=== PATIENT | female | born 1965 | race Caucasian/White ===

== ENCOUNTER 2016-10-06 08:02 | Observation (INO) | payer BC ==
[2016-09-27 12:14] LABS: BASO % 0.3 %; BASO ABS # 0.05 K/uL (0-0.2); COMPLETE YES; EOS % 2.7 %; HEMATOCRIT 43.4 % (37-47); IG% 0.4 %; LYMPH % 11.5 %; LYMPH ABS # 1.74 K/uL (1.2-3.4); MEAN CELL VOLUME 82.2 fL (80-100); MEAN CORPUSCULAR HEMOGLOBIN 28.2 pg (25-34); MEAN CORPUSCULAR HGB CONC 34.3 g/dl (32-36); MONO % 9.7 %; NEUT % 75.4 %; PLATELET COUNT 259 K/uL (130-400); RED BLOOD COUNT 5.28 M/uL (4.2-5.4); WHITE BLOOD COUNT 15.19 K/uL (4.8-10.8)
[2016-09-27 12:45] LABS: BLOOD UREA NITROGEN 11 mg/dl (7-18); BUN/CREATININE RATIO 9.6 (10-20); CALCIUM 9.3 mg/dl (8.5-10.1); CARBON DIOXIDE 23 mmol/L (21-32); CHLORIDE 107 mmol/L (98-107); GLUCOSE 72 mg/dl (70-99); POTASSIUM 3.9 mmol/L (3.5-5.1); SODIUM 141 mmol/L (136-145)
[2016-09-29 15:48] VITALS: BMI 37.0
[2016-10-06] VITALS (7 sets, daily range): BP systolic 120–146; BP diastolic 79–88; PULSE 85–101; TEMP 36.3–36.7; O2SAT 94–99; Ht 160 cm; Wt 95.0 kg
[~2016-10-06] VITALS: Ht 160 cm; Wt 95.0 kg
[~2016-10-06 08:02] MED LIST: ATV/1 PO; BUPRTAB51 PO; CEFAZOLIN 2000 MG/60 ML D5W 50 ML IV SCH; CHOL1TAB46 PO; CLB/200 PO; FLUO40CA8 PO; IBUP-103 PO; LACTATED RINGER'S 1000ML 1,000 ML IV SCH; LEFL20TA PO; LORA10TA57 PO; LOSA50TA6 PO; SIMV20TA5 PO; ZNTT/150 PO
[2016-10-06] MEDS ORDERED: FENTANYL CITRATE INJ 50 MCG/1 ML 2 ML VIAL ONE ×2 (09:30→11:56)
[2016-10-06] MEDS ORDERED: MIDAZOLAM HCL 1 MG/ML 2ML VIAL ONE (09:30)
[2016-10-06] MEDS ORDERED: DEXAMETHASONE SOD INJ 4 MG/ML VIAL ONE (09:30)
[2016-10-06] MEDS ORDERED: CISATRACURIUM BESYLATE IV SOLN 2 MG/ML 10 ML VIAL ONE (09:30)
[2016-10-06] MEDS ORDERED: PROPOFOL IV EMULSION 10 MG/ML 20 ML VIAL IV ONE (09:30)
[2016-10-06] MEDS ORDERED: ONDANSETRON INJ 2 MG/ML 2 ML VIAL ONE (09:30)
[2016-10-06] MEDS ORDERED: LIDOCAINE HCL 2% 2 ML VIAL (20MG/ML) ONE (09:30)
--- NOTE | 2016-10-06 10:23 | History & Physical Bridge Note ---
H&P Re-Evaluation Bridge Note: I have examined the patient, reviewed the History & Physical and in the interval since the performance of the History & Physical I have noted the following changes of clinical significance: No changes noted
[2016-10-06] MEDS ORDERED: HYDROmorphone INJ 2 MG/ML SYR/VIAL ONE (11:00)
[2016-10-06] MEDS ORDERED: LABETALOL HCL IV 5 MG/ML 20ML ONE (11:37)
[2016-10-06] MEDS ORDERED: TISSEEL FIBRIN SEALANT 4ML TOP ONE (12:16)
[2016-10-06] MEDS ORDERED: BUPIVACAINE 0.5 % 5 MG/1 ML MPF 30ML VIAL INJ ONE (12:32)
[2016-10-06] MEDS ORDERED: LACTATED RINGER'S 1000ML 1,000 ML IV SCH (12:43)
[2016-10-06] MEDS ORDERED: MAGNESIUM HYDROXIDE SUSP 30 ML UDC PO PRN (12:45)
[2016-10-06] MEDS ORDERED: SIMETHICONE 80 MG CHEW PO PRN (12:45)
[2016-10-06] MEDS ORDERED: OXYCODONE/ACETAMINOPHEN 5-325 TAB PO PRN ×2 (12:45)
[2016-10-06] MEDS ORDERED: ACETAMINOPHEN 325 MG TAB PO PRN (12:45)
[2016-10-06] MEDS ORDERED: PROMETHAZINE HCL INJ 25 MG in SODIUM CHLORIDE 0.9% 50ML 50 ML IV PRN (12:45)
[2016-10-06] MEDS ORDERED: KETOROLAC TROMETHAMINE 30 MG/ML VIAL IV. PRN (12:45)
[2016-10-06] MEDS ORDERED: PROMETHAZINE HCL INJ 12.5 MG in SODIUM CHLORIDE 0.9% 50ML 50 ML IV PRN ×2 (12:45→13:45)
[2016-10-06] MEDS ORDERED: IBUPROFEN 600 MG TAB PO PRN (12:45)
[2016-10-06] MEDS ORDERED: MEPERIDINE HCL 50 MG/ML CARP IV PRN ×2 (12:45)
[2016-10-06] MEDS ORDERED: ZOLPIDEM TARTRATE 5 MG TAB PO PRN (12:45)
[2016-10-06] MEDS ORDERED: ONDANSETRON INJ 2 MG/ML 2 ML VIAL IV PRN ×2 (12:45→13:45)
[2016-10-06] MEDS ORDERED: BISACODYL 10 MG SUPP PR PRN (12:45)
--- NOTE | 2016-10-06 12:45 | [facility] Post Operative Brief Note ---
Immediate Operative Summary Operative Date Oct 06, 2016. Pre-Operative Diagnosis Menorrhagia, dysmenorrhea, failed ablation Post-Operative Diagnosis Same as preoperative diagnosis Procedure(s) Performed Robotic-assisted total laparoscopic hysterectomy, bilateral salpingo-oopherectomy, cystoscopy Surgeon Dr. Tiwari Placement Coordinator Surgeon(s) None Estimated Blood Loss 20 cc Findings normal pelvic anatomy Specimens A: uterus, cervix, bilateral fallopian tubes and ovaries Drains Saldivar Anesthesia General Complication(s) None Disposition Recovery Room / PACU
[2016-10-06] MEDS ORDERED: OXYC-57 PO (12:46)
[2016-10-06] MEDS ORDERED: MTR600X PO (12:46)
--- NOTE | 2016-10-06 12:47 | Discharge Instructions ---
Discharge Instructions Admission Reason for Admission: Menorrhagia, Dysmenorrhea Discharge Discharge Diagnosis / Problem: menorrhagia Discharge Goals Goal(s): Routine recovery after surgery Activity Recommendations Activity Limitations: per Instructions/Follow-up section . Instructions / Follow-Up Instructions / Follow-Up POST OPERATIVE: BOWEL FUNCTION/MEDICATIONS: 1. Constipation pain and discomfort are the most common complaints 5-7 days after surgery. Points 2-6 address the things that can help. 2. Chewing gum can help stimulate the gut and help improve digestion and motility. 3. Milk of Magnesia 1-2 times per day until return of bowel function. 4. Colace is a stool softener that helps. Taking this 2-3 times per day until bowel function returns to normal is highly recommended. 5. Dulcolax is a laxative that may be used if several days have passed without a bowel movement. Alternatively Miralax may be used daily instead. 6. Drink plenty of fluids as this will also reduce constipation. 7. Narcotic pain medications will be prescribed by your physician. They are safe to use and we encourage you to use them. If you are not allergic, ibuprofen will also be prescribed. Many patients will be able to transition off of the narcotic medications to ibuprofen by postoperative day 3. ACTIVITY RECOMMENDATIONS: 1. Get plenty of rest and listen to your body. If you are tired, take a nap. 2. You may shower, but do not take a tub bath until you see your doctor at the 2 week post operative visit. 3. Absolutely NO intercourse and nothing in the vagina until you are examined by your doctor at the 6 week visit. At that visit it will be determined when such activities can be resumed. This can range from 6-12 weeks after your surgery depending on healing time. 4. The main physical activity in the first week should be walking. By the second week you can slowly increase activity. There are no limits on walking up and down stairs. 5. Do not lift more than 5-10 lbs for 4 weeks. Remember the "one-handed rule", i.e. if you can lift something with only one hand it's likely okay. 6. Minimize bung remover like vacuuming and exercising for 4 weeks. "Overdoing it" can lead to incisions not healing, pain and vaginal bleeding , so again, listen to your body. 7. Driving can be resumed when you feel able. Do not drive within 24 hours of taking a narcotic medication. EXPECTATIONS: 1. Vaginal spotting, bleeding and discharge are common after surgery. There may even be an odor to the discharge which is often related to sutures used in the vagina. If you experience heavy vaginal bleeding, call the office number day or night [phone]. 2. Bladder discomfort is common after surgery from the catheter. This usually resolves in 1-2 weeks. 3. By the end of the 3rd or 4th week you should be feeling much better. It may take up to 6 weeks for your energy levels to return to normal. 4. Narcotic medications have side effects such as: dizziness, headache, nausea and/or vomiting. If you suspect your pain medication is causing problems, call our office and we may be able to prescribe an alternate medication. 5. The skin incisions are often covered with a liquid bandage. This will gradually peel off over time. CALL THE OFFICE IF YOU HAVE ANY OF THE FOLLOWIN. Temperature of 101 degrees or higher. 2. Severe abdominal or pelvic pain not relieved by pain medication. 3. Persistent nausea or vomiting. 4. Increased pain with urination or difficulty urinating. 5. Bright red bleeding that soaks more than 1 pad per hour. CONTACT PHONE NUMBERS: Main Office: [phone] Surgical Nurse: [phone] extension [phone] Avoid all tobacco products. If you need help to stop smoking, call [place]'s FREE QUITLINE at . This is a free call. Current Hospital Diet Patient's current hospital diet: Discharge Diet Recommended Diet: Regular Diet Procedures Procedures Performed: Robotic-assisted total laparoscopic hysterectomy, bilateral salpingo-oopherectomy, cystoscopy Pending Studies Studies pending at discharge: no Medical Emergencies . Who to Call and When: Medical Emergencies: If at any time you feel your situation is an emergency, please call 911 immediately. . Non-Emergent Contact Non-Emergency issues call your: Primary Care Provider . . "Provider Documentation" section prepared by Brendan Tiwari. VTE Core Measure Inpt VTE Proph given/why not?: Laura Poon, SCD's
[2016-10-06] MEDS ORDERED: KETOROLAC TROMETHAMINE 30 MG/ML VIAL ONE (12:48)
[2016-10-06] MEDS ORDERED: EpHEDrine SULFATE INJ 50 MG/ML AMP IV PRN (13:45)
[2016-10-06] MEDS ORDERED: LABETALOL HCL IV 5 MG/ML 20ML IV PRN (13:45)
[2016-10-06] MEDS ORDERED: HYDROmorphone INJ 1 MG/ML SYR IV PRN (13:45)
[2016-10-06] MEDS ORDERED: NALOXONE HCL 0.4 MG/1 ML VIAL/CARP IV PRN (13:45)
[2016-10-06] MEDS ORDERED: ATROPINE SULFATE 0.1 MG/ML 5ML SYR IV PRN (13:45)
[2016-10-06] MEDS ORDERED: FLUMAZENIL 0.1 MG/1 ML 10 ML VIAL IV PRN (13:45)
--- NOTE | 2016-10-06 13:48 | Anesthesiology Progress Note ---
Anesthesia Post Op Note Date & Time Oct 06, 2016 at 13:48 Vital Signs Pain Intensity: 0 Vital Signs Past 12 Hours Date Time Temp Pulse Resp B/P Pulse Ox O2 Delivery O2 Flow Rate FiO2 10/06/16 13:45 79 18 121/68 94 Nasal Cannula 2 10/06/16 13:35 89 12 137/71 98 Nasal Cannula 2 10/06/16 13:25 86 13 134/83 94 Nasal Cannula 2 10/06/16 13:15 80 19 133/75 94 Nasal Cannula 2 10/06/16 13:05 86 10 99/78 96 Mask 10 10/06/16 12:55 36.4 82 17 153/69 99 Mask 10 10/06/16 08:18 36.6 101 16 145/88 96 Room Air Notes Mental Status: alert / awake / arousable, participated in evaluation Pt Amnestic to Procedure: Yes Nausea / Vomiting: adequately controlled Pain: adequately controlled Airway Patency, RR, SpO2: stable & adequate BP & HR: stable & adequate Hydration State: stable & adequate Anesthetic Complications: no major complications apparent
[2016-10-06] MEDS ORDERED: IV FLUIDS COMPLETED PRN (14:45)
--- NOTE | 2016-10-06 16:07 | OPERATIVE REPORT ---
DATE OF OPERATION: 10/06/2016 PREOPERATIVE DIAGNOSIS: Menorrhagia, failed ablation. POSTOPERATIVE DIAGNOSIS: Same. PROCEDURE: Robotically assisted total laparoscopic hysterectomy, bilateral salpingo-oophorectomy, and cystoscopy. SURGEON: Dr. Tiwari. CHARGE ACCOUNT CLERK SURGEON: None. ESTIMATED BLOOD LOSS: 20 mL. FINDINGS: Normal pelvic anatomy. SPECIMENS: Uterus, cervix, bilateral fallopian tubes, and bilateral ovaries. DRAINS: Saldivar catheter. COMPLICATIONS: None. DISPOSITION: Recovery room. DESCRIPTION OF PROCEDURE: Emmy was given a general anesthetic, prepped and draped in dorsal lithotomy position in [facility]. Bladder drained with a Saldivar catheter. VCare inserted into her cervix in the usual fashion to manipulate the uterus. Gloves changed and a supraumbilical incision made with scalpel. With open Deanna technique, we made entry into the peritoneal cavity. Blunt-tipped Deanna trocar was then inflated to allow stabilization with the balloon. CO2 gas to insufflate the abdomen. FINDINGS: With a 10 mm laparoscope, I was able to view the upper abdomen. No sign of visceral organ injury. Deep Trendelenburg position obtained. I was unable to visualize the pelvis. Bilateral ovaries and uterus were within normal limits. No significant adhesions or other masses. Two robotic ports were placed, one in the left and one in the right, and then a left upper quadrant accessory port 11 mm bladeless. We then docked the robot. Arm #1 was monopolar phuong. Arm #2 was bipolar [place]. Procedure was begun by using the VCare to manipulate the uterus. I identified the ureter both on the left and right side. The patient had requested her ovaries be removed, so the blood supply was coagulated and cut proximal to the ovary, taking care to stay away from the location of the ureter. This was then transected with the monopolar phuong and then same process with the round ligament and then the uterine vessels were skeletonized. Bladder flap dissected away sharply and uterine vessels were then coagulated close to the cervix in the usual fashion well away from the left ureter. Same exact process on the right side. Once the bladder was fully dissected away and was able to make an anterior colpotomy into the VCare cup. With monopolar phuong, the colpotomy was continued until the cervix was released from the vagina. Uterus and adnexa was then pulled into the vagina and removed and a sponge and a glove was placed for maintenance of pneumoperitoneum. IV methylene blue was given. Arm #1 became the jose needle refrigerated company driver. Arm #2 became the [employer] grasper. We then placed a 12-inch 2-0 V-Loc 90 suture and closed the cuff in the usual fashion taking good full thickness bites of at least a centimeter going from left to right, incorporating the vaginal mucosa. Suture was then cut so there was no tail and needle removed through the accessory port. After generous irrigation and suction, we did apply Tisseel to the area for hemostasis and then robotic instruments removed, robot undocked, ports removed, gas allowed to escape. Incisions injected with 0.5% Marcaine. Fascia was closed with 0 Vicryl in both the umbilical and left upper quadrant incisions and 4-0 subcuticular Monocryl closures with Dermabond. We performed cystoscopy by removing the Saldivar catheter. I was able to visualize there was no injury to the bladder and good strong jets of blue urine came from left and right ureter openings. Cystoscope removed and a new Saldivar catheter placed. There was no bleeding from the vagina. Sponge and instrument counts were correct. We had removed the sponge from the vagina as well at the end of the case. I attest to the content of the Intraoperative Record and any orders documented therein. Any exceptions are noted below. COLTON
[2016-10-06] MEDS ORDERED: DOCUSATE SODIUM 100 MG CAP PO SCH (21:00)
--- NOTE | 2016-10-09 09:52 | DISCHARGE SUMMARY ---
Emmy had a total laparoscopic hysterectomy and bilateral salpingo-oophorectomy. On October 06 she met discharge criteria on the same day and was discharged several hours after her surgery. SUBJECTIVE: At that time, she was doing well, ambulating well, tolerating oral diet. Had voided already. Had minimal bleeding. No extremity pain. PHYSICAL EXAMINATION: VITAL SIGNS: Stable. She was afebrile. ABDOMEN: Soft and nontender. Incisions clean, dry and intact. EXTREMITIES: Negative. IMPRESSION AND PLAN: Meets discharge criteria just a few hours after surgery and is discharged home the same day. Discharge instructions were reviewed. The patient given appropriate pain medication and told to followup in the office and call sooner with any concerns.
[2017-02-11] MEDS ORDERED: CZR50 PO (11:28)
[2017-02-11] MEDS ORDERED: ZCR40 PO (11:28)
== END 2016-10-06 19:55 | disposition home or self-care (01) ==
LOC: ENRESERVDT → ENRESERVTM → C.ACU 08:02 → C.MS4N 10:30
PROVIDERS: ADMIT Obstetrics & Gynecology; ATTEND Obstetrics & Gynecology
DX: N92.0 Excessive and frequent menstruation with regular cycle (principal); N94.6 Dysmenorrhea, unspecified; N85.8 Other specified noninflammatory disorders of uterus; N72 Inflammatory disease of cervix uteri; I10 Essential (primary) hypertension; F41.8 Other specified anxiety disorders; E78.5 Hyperlipidemia, unspecified; M06.9 Rheumatoid arthritis, unspecified; Z79.899 Other long term (current) drug therapy; Z98.890 Other specified postprocedural states; Z82.5 Family history of asthma and other chronic lower respiratory diseases; Z82.49 Family history of ischemic heart disease and other diseases of the circulatory system; Z83.49 Family history of other endocrine, nutritional and metabolic diseases
CPT/HCPCS: 58571; S2900

== ENCOUNTER 2016-10-22 12:39 | Emergency (ER) | payer BC, OTHER ==
[~2016-10-22] VITALS: Ht 160 cm; Wt 94.2 kg
[~2016-10-22 12:39] MED LIST changes: -CEFAZOLIN 2000 MG/60 ML D5W 50 ML IV SCH; -LACTATED RINGER'S 1000ML 1,000 ML IV SCH; +MTR600X PO; +OXYC-57 PO
[2016-10-22 12:43] VITALS: TEMP 36.7; Ht 160 cm; Wt 94.2 kg
[2016-10-22 13:41] LABS: COMPLETE YES
[2016-10-22 13:47] LABS: CALCIUM 9.2 mg/dl (8.5-10.1); CREATININE 1.1 mg/dl (0.60-1.20)
[2016-10-22 14:02] LABS: ALB/GLOB RATIO 0.9 (0.9-2)
[2016-10-22 14:34] VITALS: BP 143/91; PULSE 83; O2SAT 97
--- NOTE | 2016-10-22 14:39 | History and Physical ---
History & Physical Date & Time of Service: Oct 22, 2016 at 14:27 Chief Complaint: Abnormal Bleeding/Hysterectomy Primary Care Physician: Gerardo Eli M.D. History of Present Illness Source: patient, clinic records, hospital records Patient is a [id number] who presents to the emergency department for evaluation of bleeding after hysterectomy. Patient had a total laproscopic hysterectomy with BSO and cysto approximately 2 weeks ago. Review of the operative records show the procedure was uncomplicated. She went home the same day. She saw her surgeon in the office on 10/18 for a two week postop visit and was doing very well. At that time she had very little bleeding/discharge. Last night while sitting down and working a puzzle she experienced a gush. She thought she might have lost urine but when she got to the bathroom , she found bright red bleeding that soaked through her underwear and pants. This was not preceeded by any other symptoms or increased pain. She had no further bleeding that night. Today she had another episode of the same and called me. She notes no fever, chills, nausea, vomiting. She notes she is moving her bowels without difficulty or pain and has no bladder issues. Notes she has placed nothing in her vagina. Invited her in for evaluation. Past Medical/Surgical History PMHx--depression/anxiety, RA, hypertension, elevated cholesterol psxhx--carpal tunnel release, tubal ligation , TLH/BSO/cysto Fam hx--noncontributory. Social History Smoking Status: Never Smoker Alcohol Use: socially Drug Use: none Marital Status: Housing status: lives with family Multi-Drug Resistant Organisms History of MDRO: No Allergies Coded Allergies: NO KNOWN DRUG ALLERGIES (Verified Allergy, Unknown, ., 10/07/15) Roy (Verified Allergy, Unknown, HIVES, 09/29/16) Home Medications Scheduled Bupropion Hcl (Wellbutrin Xl), 300 MG PO QAM Celecoxib (CeleBREX), 200 MG PO BID Cholecalciferol (Vitamin D3), 1 TAB PO QAM Fluoxetine (Prozac), 40 MG PO QAM Ibuprofen Tab (Advil), 800 MG PO PRN Leflunomide (Arava), 20 MG PO 3XWK Loratadine & Pseudoephedrine (Claritin-D 24 Hour), 20 MG PO QAM Lorazepam (Ativan), 1 MG PO PRN Losartan Potassium (Cozaar), 50 MG PO QAM Ranitidine (Zantac), 150 MG PO BID Simvastatin (Zocor), 20 MG PO QPM Scheduled PRN Ibuprofen (Ibuprofen), 600 MG PO Q6H PRN for Pain,EWING,cramping,or fever Oxycodone/Acetaminophen 5MG/325MG (Percocet 5MG/325MG), 1 TAB PO Q4H PRN for Pain (pain scale 1-5) Review of Systems Constitutional: No chills, No fever, No sweats ENT: No dental problems, No hearing loss, No nasal symptoms, No problem reported, No sore throat, No tinnitus, No trouble swallowing, No unusual epistaxis Respiratory: No cough, No shortness of breath, No wheezing Cardiovascular: No PND, No chest pain, No claudication, No edema, No orthopnea , No palpitations, No problem reported Abdomen: + pain (notes some tenderness in the lower right quadrant and below umbilicus), No constipation, No diarrhea, No nausea, No vomiting Genitourinary - Female: No dysuria, No hematuria, No urinary frequency, No urinary urgency Physical Exam Vital Signs Date Time Temp Pulse Resp B/P Pulse Ox O2 Delivery O2 Flow Rate FiO2 10/22/16 12:43 36.7 102 18 158/103 100 Room Air General Appearance: WD/WN, no apparent distress Abdomen/GI: non tender, soft, no organomegaly Genitourinary - Female: external genitalia normal On speculum exam there is a very small amount of blood tinged d/c within the vagina. no active bleeding. cuff is intact both by visualization and palpation. no blood from the incision with cough or valsalva. There is slight tenderness to palpation of the cuff with exam that is consistent with postop status. No mass or fluctuance appreciated. No masses appreciated in the adnexa. On RVE, there is no palpable mass and the cuff is slightly thickened c/ w postop healing. Minimal tenderness to palpation Diagnostics Laboratory Results Results Past 24 Hours Test 10/22/16 13:16 Range/Units White Blood Count 10.91 4.8-10.8 K/uL Red Blood Count 4.85 4.2-5.4 M/uL Hemoglobin 13.4 12.0-16.0 g/dL Hematocrit 39.2 37-47 % Mean Corpuscular Volume 80.8 80-100 fL Mean Corpuscular Hemoglobin 27.6 25-34 pg Mean Corpuscular Hemoglobin Concent 34.2 32-36 g/dl Platelet Count 342 130-400 K/uL Mean Platelet Volume 10.4 7.4-10.4 fL Neutrophils (%) (Auto) 63.6 % Lymphocytes (%) (Auto) 23.3 % Monocytes (%) (Auto) 7.8 % Eosinophils (%) (Auto) 3.3 % Basophils (%) (Auto) 0.5 % Neutrophils # (Auto) 6.94 1.4-6.5 K/uL Lymphocytes # (Auto) 2.54 1.2-3.4 K/uL Monocytes # (Auto) 0.85 0.11-0.59 K/uL Eosinophils # (Auto) 0.36 0-0.5 K/uL Basophils # (Auto) 0.06 0-0.2 K/uL RDW Standard Deviation 37.4 36.4-46.3 fL RDW Coefficient of Variation 12.8 11.5-14.5 % Immature Granulocyte % (Auto) 1.5 % Immature Granulocyte # (Auto) 0.16 0.00-0.02 K/uL Red Blood Cell Morphology Unremarkable Sodium Level 142 136-145 mmol/L Potassium Level 4.0 3.5-5.1 mmol/L Chloride Level 105 98-107 mmol/L Carbon Dioxide Level 25 21-32 mmol/L Anion Gap 12.0 3-11 mmol/L Blood Urea Nitrogen 14 7-18 mg/dl Creatinine 1.10 0.60-1.20 mg/dl Est Creatinine Clear Calc Drug Dose 68.2 ml/min Estimated GFR () 68.8 Estimated GFR (Non- 59.3 BUN/Creatinine Ratio 13.0 10-20 Random Glucose 86 70-99 mg/dl Calcium Level 9.2 8.5-10.1 mg/dl Total Bilirubin 0.1 0.2-1 mg/dl Aspartate Amino Transf (AST/SGOT) 12 15-37 U/L Alanine Aminotransferase (ALT/SGPT) 23 12-78 U/L Alkaline Phosphatase 114 45-117 U/L Total Protein 7.6 6.4-8.2 gm/dl Albumin 3.6 3.4-5.0 gm/dl Globulin 4.0 2.5-4.0 gm/dl Albumin/Globulin Ratio 0.9 0.9-2 Impression Assessment and Plan Vaginal bleeding s/p hyster. There is no evidence of active vaginal bleeding or cuff disruption or dehiscence. Her h/h is stable and her wbc is consistent with postop state. CMP is nl. Suspect she had a fluid collection at the top of the cuff that has been released. Reassured the patient. She will be d/c to home. She will return at her normally scheduled f/u. She is to call if she has fever, chills, nausea, vomiting, increased bleeding or abdominal pain. She should call with any concerns. She will be d/c from the ED as an outpatient.
[2016-10-22 15:48] LABS: BASO % 0.4 %; BASO ABS # 0.04 K/uL (0-0.2); EOS % 3.2 %; HEMATOCRIT 40.1 % (37-47); IG% 1.3 %; LYMPH % 24.6 %; LYMPH ABS # 2.64 K/uL (1.2-3.4); MEAN CELL VOLUME 82.3 fL (80-100); MEAN CORPUSCULAR HEMOGLOBIN 27.7 pg (25-34); MEAN CORPUSCULAR HGB CONC 33.7 g/dl (32-36); MEAN PLATELET VOLUME 10.4 fL (7.4-10.4); MONO % 5.7 %; NEUT % 64.8 %; PLATELET COUNT 346 K/uL (130-400); RED BLOOD COUNT 4.87 M/uL (4.2-5.4); WHITE BLOOD COUNT 10.71 K/uL (4.8-10.8)
[2017-02-11] MEDS ORDERED: CZR50 PO (11:28)
[2017-02-11] MEDS ORDERED: ZCR40 PO (11:28)
== END 2016-10-22 14:40 | disposition home or self-care (01) ==
LOC: C.EDB 12:40 → C.EDC 14:40
DX: N99.820 Postprocedural hemorrhage of a genitourinary system organ or structure following a genitourinary system procedure (principal); F32.9 Major depressive disorder, single episode, unspecified; F41.9 Anxiety disorder, unspecified; I10 Essential (primary) hypertension; M06.9 Rheumatoid arthritis, unspecified; E78.00 Pure hypercholesterolemia, unspecified; Z90.710 Acquired absence of both cervix and uterus

== ENCOUNTER 2017-02-09 10:56 | Inpatient (IN) | payer BC ==
[~2017-02-09] VITALS: Ht 162.6 cm; Wt 97.2 kg
[~2017-02-09 10:56] MED LIST changes: +LORA-749 PO; -LORA10TA57 PO
[2017-02-09] MEDS ORDERED: SODIUM CHLORIDE 0.9% 1000ML 1,000 ML IV STA (11:20)
[2017-02-09] MEDS ORDERED: ASPIRIN 324 MG CHEW PO STA (11:20)
[2017-02-09] MEDS ORDERED: NITROGLYCERIN 0.4 MG SL PER TAB CHARGE SL STA (11:20)
--- NOTE | 2017-02-09 11:42 | EMERGENCY ROOM VISIT NOTE ---
History First contact with patient: 11:08 Chief Complaint: HYPERTENSION Stated Complaint: CHEST PAIN -DIZZY History of Present Illness The patient is a 51 year old female who presents to the Emergency Room with complaints of headache and chest pain. The patient's primary complaint today is of chest pain. She describes "an elephant sitting on her chest." She states the pain in her chest is an 8/10. The patient states the chest pain has been persistent for the last 2 days. She also reports shortness of breath. She denies any change with activity. She states she has also had a headache at its most severe had her in tears. She has had headaches for the last 2 weeks. She reports a history of headaches but states this is more severe and persistent. She states that she feels easy. She states her told her that her breathing was "different." The patient had a hysterectomy in September and has done well with the surgery. She denies any personal or family history of DVT or PE. She states she has recently been started on estrogen. The patient reports a significant family history of coronary artery disease. The patient's father has had myocardial infarction 4 and his first was at age 43. Her brother has had 4 stents at age 42. The patient does have a history of hypertension and hyperlipidemia. The patient does not smoke. She has never had a stress test or cardiac catheterization. She states she has had high blood pressure. The patient was seen by her family doctor today and referred to the emergency department for further evaluation and management. Review of Systems A 10 system review of systems was completed with positives and pertinent negatives listed in the HPI. Past Medical/Surgical History Medical Problems: (1) Anxiety (2) Chest pain (3) Depression (4) failed ablation (5) GERD (gastroesophageal reflux disease) (6) Hyperlipidemia (7) Hypertension (8) Menorrhagia Social History Smoking Status: Never Smoker Drug Use: none Marital Status: Current/Historical Medications Scheduled Bupropion Hcl (Wellbutrin Xl), 300 MG PO QAM Cholecalciferol (Vitamin D3), 1 TAB PO QAM Estradiol (Estradiol), 2 MG PO DAILY Fluoxetine (Prozac), 40 MG PO QAM Leflunomide (Arava), 20 MG PO DAILY Lorazepam (Ativan), 1 MG PO PRN Losartan Potassium (Cozaar), 50 MG PO QAM Ranitidine (Zantac), 150 MG PO BID Simvastatin (Zocor), 20 MG PO QPM Scheduled PRN Ibuprofen (Ibuprofen), 600 MG PO Q6H PRN for Pain,EWING,cramping,or fever Allergies Coded Allergies: NO KNOWN DRUG ALLERGIES (Verified Allergy, Unknown, ., 02/09/17) [place] (Verified Allergy, Unknown, HIVES, 02/09/17) Physical Exam Vital Signs Date Time Temp Pulse Resp B/P Pulse Ox O2 Delivery O2 Flow Rate FiO2 02/09/17 13:32 81 16 177/87 99 02/09/17 12:46 153/72 02/09/17 12:45 73 26 98 02/09/17 12:41 137/78 02/09/17 12:40 74 26 99 02/09/17 12:37 143/92 02/09/17 12:36 81 02/09/17 12:35 80 20 99 02/09/17 12:34 156/75 02/09/17 12:30 76 30 98 02/09/17 12:27 158/79 02/09/17 12:25 79 25 98 02/09/17 12:23 168/96 02/09/17 12:20 79 27 99 02/09/17 12:18 79 22 172/94 98 Room Air 02/09/17 11:15 99 Room Air 02/09/17 11:02 36.4 87 16 181/103 98 Room Air Physical Exam VITALS: Vitals are noted on the nurse's note and reviewed by myself. Vital signs stable. The patient is afebrile. She is hypertensive with a blood pressure 181/103. She is not tachycardic, tachypneic or hypoxic. GENERAL: This is a 51-year-old female, in no acute distress, nondiaphoretic, well-developed well-nourished. SKIN: The skin was without rashes, erythema, edema, or bruising. There is no tenting of the skin. Capillary reflex less than 2 seconds. HEAD: Normocephalic atraumatic. EARS: External auditory canals clear, tympanic membranes pearly velasquez without erythema or effusion bilaterally. EYES: Pupils equal round and reactive to light and accommodation. Conjunctivae without injection, sclerae without icterus. Extraocular movements intact. NOSE: Patent, turbinates without inflammation or discharge. MOUTH: Mucous membranes moist. Tonsils are not enlarged. Pharynx without erythema or exudate. Uvula midline. Airway patent. Tongue does not deviate. NECK: Supple without nuchal rigidity. No JVD. HEART: Regular rate and rhythm without murmurs gallops or rubs. LUNGS: Clear to auscultation bilaterally without wheezes, rales or rhonchi. No retractions or accessory muscle use. ABDOMEN: Positive bowel sounds x 4. Soft, nontender, without masses or organomegaly. MUSCULOSKELETAL: No muscle atrophy, erythema, or edema noted. Full range of motion s in all extremities. Normal gait. Strength 5/5 throughout. NEURO: Patient was alert and oriented to person place and time. Cranial nerves II through XII grossly intact. No focal neurological deficits. Medical Decision & Procedures ER Provider Diagnostic Interpretation: CT SCAN OF THE BRAIN WITHOUT IV CONTRAST CLINICAL HISTORY: Headache. Hypertension. Dizziness. COMPARISON STUDY: CT scan of the paranasal sinuses dated 08/21/2014. TECHNIQUE: Unenhanced axial CT scan of the brain is performed from the vertex to the skull base. Automated dose control exposure was utilized. CT DOSE: 729.78 mGycm FINDINGS: Brain parenchyma: The brain parenchyma is normal in appearance. There is no hemorrhage, mass effect, or evidence of acute territorial ischemia by CT criteria. Velasquez-white matter is preserved. No extra-axial fluid collection is seen. Ventricles, sulci, cisterns: Normal in configuration. Intracranial vasculature: The visualized intracranial vasculature at the skull base is normal in appearance. Calvarium: Unremarkable. Sinuses and mastoids: Trace mucosal thickening is seen in the left maxillary antrum. The remaining paranasal sinuses are clear. The mastoid air cells are well pneumatized. Orbits: The bony orbits are grossly intact. IMPRESSION: No acute intracranial abnormality. CHEST 2 VIEWS ROUTINE HISTORY: chest pressure COMPARISON: None. FINDINGS: The lungs are clear. Cardiac silhouette is normal in size. No pleural effusions. No pneumothorax. IMPRESSION: No acute process. Laboratory Results 02/09/17 11:50 Red Blood Count 4.92, Mean Corpuscular Volume 82.1, Mean Corpuscular Hemoglobin 27.8, Mean Corpuscular Hemoglobin Concent 33.9, Mean Platelet Volume 10.5, Neutrophils (%) (Auto) 63.7, Lymphocytes (%) (Auto) 26.8, Monocytes (%) (Auto) 7.3, Eosinophils (%) (Auto) 1.8, Basophils (%) (Auto) 0.2, Neutrophils # (Auto) 5.59, Lymphocytes # (Auto) 2.35, Monocytes # (Auto) 0.64, Eosinophils # (Auto) 0.16, Basophils # (Auto) 0.02 02/09/17 11:50 Test 02/09/17 11:50 02/09/17 13:37 White Blood Count 8.78 K/uL (4.8-10.8) Red Blood Count 4.92 M/uL (4.2-5.4) Hemoglobin 13.7 g/dL (12.0-16.0) Hematocrit 40.4 % (37-47) Mean Corpuscular Volume 82.1 fL (80-100) Mean Corpuscular Hemoglobin 27.8 pg (25-34) Mean Corpuscular Hemoglobin Concent 33.9 g/dl (32-36) Platelet Count 244 K/uL (130-400) Mean Platelet Volume 10.5 fL (7.4-10.4) Neutrophils (%) (Auto) 63.7 % Lymphocytes (%) (Auto) 26.8 % Monocytes (%) (Auto) 7.3 % Eosinophils (%) (Auto) 1.8 % Basophils (%) (Auto) 0.2 % Neutrophils # (Auto) 5.59 K/uL (1.4-6.5) Lymphocytes # (Auto) 2.35 K/uL (1.2-3.4) Monocytes # (Auto) 0.64 K/uL (0.11-0.59) Eosinophils # (Auto) 0.16 K/uL (0-0.5) Basophils # (Auto) 0.02 K/uL (0-0.2) RDW Standard Deviation 40.8 fL (36.4-46.3) RDW Coefficient of Variation 13.6 % (11.5-14.5) Immature Granulocyte % (Auto) 0.2 % Immature Granulocyte # (Auto) 0.02 K/uL (0.00-0.02) Prothrombin Time 10.1 SECONDS (9.0-12.0) Prothromb Time International Ratio 0.9 (0.9-1.1) Activated Partial Thromboplast Time 23.6 SECONDS (21.0-31.0) Partial Thromboplastin Ratio 0.9 D-Dimer 240 ug/L FEU (0-500) Anion Gap 7.0 mmol/L (3-11) Est Creatinine Clear Calc Drug Dose 70.0 ml/min Estimated GFR () 68.3 Estimated GFR (Non- 58.9 BUN/Creatinine Ratio 10.3 (10-20) Calcium Level 8.8 mg/dl (8.5-10.1) Magnesium Level 1.9 mg/dl (1.8-2.4) Total Bilirubin 0.3 mg/dl (0.2-1) Aspartate Amino Transf (AST/SGOT) 17 U/L (15-37) Alanine Aminotransferase (ALT/SGPT) 21 U/L (12-78) Alkaline Phosphatase 85 U/L (45-117) Total Creatine Kinase 59 U/L (26-192) Total Protein 7.8 gm/dl (6.4-8.2) Albumin 3.7 gm/dl (3.4-5.0) Globulin 4.1 gm/dl (2.5-4.0) Albumin/Globulin Ratio 0.9 (0.9-2) Thyroid Stimulating Hormone (TSH) 2.420 uIu/ml (0.300-4.500) Urine Color YELLOW Urine Appearance CLEAR (CLEAR) Urine pH 5.5 (4.5-7.5) Urine Specific [place] 1.013 (1.000-1.030) Urine Protein NEG (NEG) Urine Glucose (UA) NEG (NEG) Urine Ketones NEG (NEG) Urine Occult Blood NEG (NEG) Urine Nitrite NEG (NEG) Urine Bilirubin NEG (NEG) Urine Urobilinogen NEG (NEG) Urine Leukocyte Esterase TRACE (NEG) Urine WBC (Auto) 1-5 /hpf (0-5) Urine RBC (Auto) 0-4 /hpf (0-4) Urine Hyaline Casts (Auto) 0 /lpf (0-5) Urine Epithelial Cells (Auto) >30 /lpf (0-5) Urine Bacteria (Auto) NEG (NEG) Medications Administered Medications (Trade) Dose Ordered Sig/Saúl Route Start Time Stop Time Status Last Admin Dose Admin Sodium Chloride (Nss 1000ml) 1,000 ml @ 999 mls/hr Q1H1M STAT IV 02/09/17 11:20 02/09/17 12:20 DC 02/09/17 12:20 999 MLS/HR Aspirin (Aspirin Chew) 324 mg NOW STAT PO 02/09/17 11:20 02/09/17 11:23 DC 02/09/17 12:20 324 MG Nitroglycerin (Nitrostat Tab) 0.4 mg PRN STAT SL 02/09/17 11:20 02/09/17 11:23 DC 02/09/17 12:20 0.4 MG Ondansetron HCl 4 mg 4 mg NOW STAT IV 02/09/17 12:41 02/09/17 12:42 DC 02/09/17 12:55 4 MG Sodium Chloride (Nss 1000ml) 1,000 ml @ 100 mls/hr Q10H IV 02/09/17 14:18 02/10/17 02:17 02/09/17 19:38 100 MLS/HR Procedure The patient was monitored on a cardiac catheterization technician. They maintained a normal sinus rhythm without ectopy. ECG Indication: chest pain Rate (beats per minute): 82 Rhythm: normal sinus Findings: no acute ischemic change Change: no significant change ED Course The patient was seen and examined. Previous visits were reviewed. Medication list was reviewed. The patient does not have a fever or leukocytosis. She does not have any significant electrolyte abnormalities. Cardiac enzymes were not elevated. TSH was within normal limits. INR was 0.9. D-dimer was not elevated. Urinalysis suggests contamination. CT scan of the pain was negative for acute abnormality Chest x-ray does not reveal any acute abnormality The patient was hydrated with normal saline She was given aspirin She was given sublingual nitroglycerin which improved both her pain and her blood pressure She was then given 4 mg IV Zofran The patient presents to the emergency department with chest pain which she describes as an elephant sitting on her chest. Her pain is improved with nitroglycerin. She does have a significant family history. She also has a history of hypertension and hyperlipidemia. The patient has also had hypertension and headache. I discussed the case with Dr. Peña at the request of case management. He agrees with admission to the hospital for further evaluation and management. I discussed the case with the hospitalist service and they will evaluate the patient. The case was discussed with Dr. Corral who agrees with the assessment and management plan Medical Decision DIFFERENTIAL DIAGNOSIS: Aortic dissection, myocarditis, pericarditis, cervical disc disease, costochondritis, herpes zoster, rib fracture, pleuritis, pneumonia , pulmonary embolus, tension pneumothorax, anxiety disorder, somatoform disorder , choledocholithiasis, status, esophagitis, esophageal spasm, esophageal reflux , esophageal rupture, pancreatitis, peptic ulcer disease, cardiac ischemia, ST elevation [place], acute coronary syndrome, arrhythmia, coronary artery vasospasm. vavular heart disease, coronary artery disease, among others. Impression Primary Impression: Precordial chest pain Additional Impressions: Hypertension Headache Departure Information Dispostion Admitted as an inpatient Condition GOOD Referrals Gerardo Eli M.D. (PCP) Patient Instructions My [facility] Problem Qualifiers Additional Impressions:
[2017-02-09] MEDS ORDERED: ESTRD2 PO (12:06)
--- NOTE | 2017-02-09 12:18 | DIAGNOSTIC IMAGING REPORT ---
CT SCAN OF THE BRAIN WITHOUT IV CONTRAST CLINICAL HISTORY: Headache. Hypertension. Dizziness. COMPARISON STUDY: CT scan of the paranasal sinuses dated 08/21/2014. TECHNIQUE: Unenhanced axial CT scan of the brain is performed from the vertex to the skull base. Automated dose control exposure was utilized. CT DOSE: 729.78 mGycm FINDINGS: Brain parenchyma: The brain parenchyma is normal in appearance. There is no hemorrhage, mass effect, or evidence of acute territorial ischemia by CT criteria. Velasquez-white matter is preserved. No extra-axial fluid collection is seen. Ventricles, sulci, cisterns: Normal in configuration. Intracranial vasculature: The visualized intracranial vasculature at the skull base is normal in appearance. Calvarium: Unremarkable. Sinuses and mastoids: Trace mucosal thickening is seen in the left maxillary antrum. The remaining paranasal sinuses are clear. The mastoid air cells are well pneumatized. Orbits: The bony orbits are grossly intact. IMPRESSION: No acute intracranial abnormality. Electronically signed by: Shai Spring M.D. 02/09/2017 12:17 PM Dictated Date/Time: 02/09/2017 12:15 PM
[2017-02-09 12:20] LABS: BASO % 0.2 %; BASO ABS # 0.02 K/uL (0-0.2); COMPLETE YES; EOS % 1.8 %; HEMATOCRIT 40.4 % (37-47); IG% 0.2 %; LYMPH % 26.8 %; LYMPH ABS # 2.35 K/uL (1.2-3.4); MEAN CELL VOLUME 82.1 fL (80-100); MEAN CORPUSCULAR HEMOGLOBIN 27.8 pg (25-34); MEAN CORPUSCULAR HGB CONC 33.9 g/dl (32-36); MEAN PLATELET VOLUME 10.5 fL (7.4-10.4); MONO % 7.3 %; NEUT % 63.7 %; PLATELET COUNT 244 K/uL (130-400); RED BLOOD COUNT 4.92 M/uL (4.2-5.4); WHITE BLOOD COUNT 8.78 K/uL (4.8-10.8)
[2017-02-09] MEDS ORDERED: ONDANSETRON INJ 2 MG/ML 2 ML VIAL IV STA (12:41)
[2017-02-09 12:43] LABS: INR 0.9 (0.9-1.1); PARTIAL THROMBOPLASTIN RATIO 0.9; PROTHROMBIN TIME (PATIENT) 10.1 SECONDS (9.0-12.0)
[2017-02-09 12:46] LABS: ALT/SGPT 21 U/L (12-78); AST/SGOT 17 U/L (15-37); BLOOD UREA NITROGEN 11 mg/dl (7-18); BUN/CREATININE RATIO 10.3 (10-20); CALCIUM 8.8 mg/dl (8.5-10.1); CARBON DIOXIDE 25 mmol/L (21-32); CHLORIDE 109 mmol/L (98-107); GLUCOSE 83 mg/dl (70-99); MAGNESIUM 1.9 mg/dl (1.8-2.4); POTASSIUM 3.8 mmol/L (3.5-5.1); SODIUM 141 mmol/L (136-145)
[2017-02-09 12:57] LABS: ALB/GLOB RATIO 0.9 (0.9-2); ALKALINE PHOSPHATASE 85 U/L (45-117)
--- NOTE | 2017-02-09 13:48 | History and Physical ---
History & Physical Date & Time of Service: February 09, 2017 at 13:48 Chief Complaint: Chest Pain -Dizzy Primary Care Physician: Gerardo Eli M.D. History of Present Illness Source: patient, family This is a 51 yo F with PMHx of hypertension, hyperlipidemia, morbid obesity, anxiety, depression, rheumatoid arthritis, s/p total hysterectomy in Sep 2016 now on estradiol replacement therapy who presented to the ED with c/o of chest heaviness x several days. The patient is present with her and her mother. She reports that her chest heaviness has been on and off for several weeks in total, but that she noticed a worsening heaviness approximately 3 days ago. She has been ignoring this chest heavinessand therefore has difficulty with specific timings or aggravating/alleviating factors. Last evening the patient noted significant chest heaviness and this morning when she woke it was the same. The patient called her PCP this morning who referred her to come to the ER. She also notes that he has been having severe headaches for the last 3 weeks which occur once every day with variable severity. She uses Tylenol 500- 1000 mg at a time which normally helps. She does not take any other pain medication. 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 The patient denies any recent travel or flying. Here in the ER a CT of the brain was completed which showed no acute intracranial abnormality. An EKG was completed which is in NSR, without any signs of acute ischemia or ST wave inversion. CBC is essentially unremarkable. CMP is also WNL. Trop I is negative. Neither a chest x-ray or CT of the chest was not obtained, will order one now. Pertinent Family Hx: Mother- hyperlipidemia, status post carotid endarterectomy. Father, has had 5-7 MIs, first was at age 43. Sister= diabetes mellitus Social History Smoking Status: Never Smoker Smokeless Tobacco Use: No Alcohol Use: none Drug Use: none Marital Status: Housing status: lives with family Occupational Status: employed Multi-Drug Resistant Organisms History of MDRO: No Allergies Coded Allergies: NO KNOWN DRUG ALLERGIES (Verified Allergy, Unknown, ., 02/09/17) [place] (Verified Allergy, Unknown, HIVES, 02/09/17) Home Medications Scheduled Bupropion Hcl (Wellbutrin Xl), 300 MG PO QAM Cholecalciferol (Vitamin D3), 1 TAB PO QAM Estradiol (Estradiol), 2 MG PO DAILY Fluoxetine (Prozac), 40 MG PO QAM Leflunomide (Arava), 20 MG PO DAILY Lorazepam (Ativan), 1 MG PO PRN Losartan Potassium (Cozaar), 50 MG PO QAM Ranitidine (Zantac), 150 MG PO BID Simvastatin (Zocor), 20 MG PO QPM Scheduled PRN Ibuprofen (Ibuprofen), 600 MG PO Q6H PRN for Pain,EWING,cramping,or fever Review of Systems Constitutional: + Daily headache, No fever, sweats or chills Eyes: + Blurred vision with headaches which lasts several seconds and then resolves, No diplopia, no worsening vision ENT: normal hearing, no trouble swallowing Respiratory: No cough, sputum, dyspnea at rest or on exertion Cardiovascular: + Chest heaviness, no chest pain, tightness or palpitations Abdomen: No pain, nausea, vomiting, diarrhea or constipation Musculoskeletal: No joint pain, calf pain, swelling Neurologic: No weakness, numbness/tingling, or balance problems Psychiatric: + hx of anxiety and depression Skin: No rash or itch Physical Exam Vital Signs Date Time Temp Pulse Resp B/P Pulse Ox O2 Delivery O2 Flow Rate FiO2 02/09/17 13:32 81 16 177/87 99 02/09/17 12:36 81 02/09/17 12:18 79 22 172/94 98 Room Air 02/09/17 11:15 99 Room Air 02/09/17 11:02 36.4 87 16 181/103 98 Room Air General: awake, alert, no apparent distress, obese, sitting up in bed Head: Normocephalic, atraumatic ENT: PERRL, EOMI, no pharyngeal exudate, mucous membranes moist Chest: Clear to auscultation, on room air, no adventitious breath sounds Cardiac: Regular rate and rhythm, + faint systolic murmur, no JVD, normal peripheral pulses, good capillary refill Abdominal: NABS x 4 quadrants, soft, nontender to palpation, no rebound, guarding or tenderness Extremities: Normal inspection, no peripheral edema or erythema, calfs nontender to palpation Psych: Normal mood and affect Neuro: AAO x 3, strength intact bilaterally and related 5/5, no motor deficits, speech is clear, no peripheral sensory deficits Diagnostics Laboratory Results Results Past 24 Hours Test 02/09/17 11:20 02/09/17 11:50 Range/Units White Blood Count 8.78 4.8-10.8 K/uL Red Blood Count 4.92 4.2-5.4 M/uL Hemoglobin 13.7 12.0-16.0 g/dL Hematocrit 40.4 37-47 % Mean Corpuscular Volume 82.1 80-100 fL Mean Corpuscular Hemoglobin 27.8 25-34 pg Mean Corpuscular Hemoglobin Concent 33.9 32-36 g/dl Platelet Count 244 130-400 K/uL Mean Platelet Volume 10.5 7.4-10.4 fL Neutrophils (%) (Auto) 63.7 % Lymphocytes (%) (Auto) 26.8 % Monocytes (%) (Auto) 7.3 % Eosinophils (%) (Auto) 1.8 % Basophils (%) (Auto) 0.2 % Neutrophils # (Auto) 5.59 1.4-6.5 K/uL Lymphocytes # (Auto) 2.35 1.2-3.4 K/uL Monocytes # (Auto) 0.64 0.11-0.59 K/uL Eosinophils # (Auto) 0.16 0-0.5 K/uL Basophils # (Auto) 0.02 0-0.2 K/uL RDW Standard Deviation 40.8 36.4-46.3 fL RDW Coefficient of Variation 13.6 11.5-14.5 % Immature Granulocyte % (Auto) 0.2 % Immature Granulocyte # (Auto) 0.02 0.00-0.02 K/uL Prothrombin Time 10.1 9.0-12.0 SECONDS Prothromb Time International Ratio 0.9 0.9-1.1 Activated Partial Thromboplast Time 23.6 21.0-31.0 SECONDS Partial Thromboplastin Ratio 0.9 D-Dimer 240 0-500 ug/L FEU Sodium Level 141 136-145 mmol/L Potassium Level 3.8 3.5-5.1 mmol/L Chloride Level 109 98-107 mmol/L Carbon Dioxide Level 25 21-32 mmol/L Anion Gap 7.0 3-11 mmol/L Blood Urea Nitrogen 11 7-18 mg/dl Creatinine 1.10 0.60-1.20 mg/dl Est Creatinine Clear Calc Drug Dose 70.0 ml/min Estimated GFR () 68.3 Estimated GFR (Non- 58.9 BUN/Creatinine Ratio 10.3 10-20 Random Glucose 83 70-99 mg/dl Calcium Level 8.8 8.5-10.1 mg/dl Magnesium Level 1.9 1.8-2.4 mg/dl Total Bilirubin 0.3 0.2-1 mg/dl Aspartate Amino Transf (AST/SGOT) 17 15-37 U/L Alanine Aminotransferase (ALT/SGPT) 21 12-78 U/L Alkaline Phosphatase 85 45-117 U/L Total Creatine Kinase 59 26-192 U/L Creatine Kinase MB 0.6 0.5-3.6 ng/ml Creatine Kinase MB Ratio 1.0 0-3.0 Troponin I < 0.015 0-0.045 ng/ml Total Protein 7.8 6.4-8.2 gm/dl Albumin 3.7 3.4-5.0 gm/dl Globulin 4.1 2.5-4.0 gm/dl Albumin/Globulin Ratio 0.9 0.9-2 Thyroid Stimulating Hormone (TSH) 2.420 0.300-4.500 uIu/ml Diagnostic Radiology CT SCAN OF THE BRAIN WITHOUT IV CONTRAST CLINICAL HISTORY: Headache. Hypertension. Dizziness. COMPARISON STUDY: CT scan of the paranasal sinuses dated 08/21/2014. TECHNIQUE: Unenhanced axial CT scan of the brain is performed from the vertex to the skull base. Automated dose control exposure was utilized. CT DOSE: 729.78 mGycm FINDINGS: Brain parenchyma: The brain parenchyma is normal in appearance. There is no hemorrhage, mass effect, or evidence of acute territorial ischemia by CT criteria. Velasquez-white matter is preserved. No extra-axial fluid collection is seen. Ventricles, sulci, cisterns: Normal in configuration. Intracranial vasculature: The visualized intracranial vasculature at the skull base is normal in appearance. Calvarium: Unremarkable. Sinuses and mastoids: Trace mucosal thickening is seen in the left maxillary antrum. The remaining paranasal sinuses are clear. The mastoid air cells are well pneumatized. Orbits: The bony orbits are grossly intact. IMPRESSION: No acute intracranial abnormality. Electronically signed by: Shai Spring M.D. 02/09/2017 12:17 PM Dictated Date/Time: 02/09/2017 12:15 PM The status of this report is Signed. EKG Vent. rate 82 BPM MS interval 116 ms QRS duration 72 ms QT/QTc 370/432 ms P-R-T axes -1 45 36 Poor data quality, interpretation may be adversely affected Normal sinus rhythm Normal ECG When compared with ECG of 06-OCT-2016 10:42, No significant change was found Impression Assessment and Plan This is a 51 yo F with PMHx of hypertension, hyperlipidemia, morbid obesity, anxiety, depression, rheumatoid arthritis, s/p total hysterectomy in Sep 2016 now on estradiol replacement therapy who presented to the ED with c/o of chest heaviness x several days. Chest pain rule out - Admit to telemetry for observation - Follow serial cardiac biomarkers, initial troponin was negative, trending 2 more sets - Checking lipids, A1c morning labs - Stress exercise test, checking 2D echo, carotid dopplers - NPO after 2400 for possible stress exercise test pending troponins - Patient is currently on losartan 50 mg QAM - Continue statin therapy- simvastatin 20 mg Qpm for now, depending on findings can increase - Checking CXR 2 view - Patient was started on estradiol 2 mg PO daily, replacement therapy at end of November/beg of December s/p total hysterectomy in September 2016, continue. Headaches - ET of brain was negative for any acute abnormalities - Analgesia with Tylenol 650 mg Q6H prn Depression/anxiety -Continue Wellbutrin SR 300 mg every morning, continue Prozac 40 mg QD Rheumatoid arthritis - Cont leflunomide 20 mg daily DVT prophylaxis: Teds, SCDs, Lovenox CODE STATUS: Full code Disposition: Patient from home, discharge likely within 24 hours, no CM needs anticipated Level of Care Telemetry Resuscitation Status FULL RESUSCITATION VTE Prophylaxis Risk Level: Low Given or contraindicated: Enoxaparin (Lovenox)SQ, T.E.D. 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 No SOB. Headache is worse s/p nitro. Pt states she took her cozaar this AM and does not miss doses. BP is generally 137/80 on this medication. Agree with HPI/ROS as noted. General Appearance: WD/WN, no apparent distress Respiratory: normal breath sounds, no respiratory distress Cardiovascular: normal peripheral pulses, regular rate, rhythm Gastrointestinal: non tender, soft Extremities: non-tender, no pedal edema Neurologic/Psychiatric: alert, oriented x 3 Skin Characteristics: normal color, warm/dry Assessment/Plan Agree with plan as outlined above Chest pain, h/a possibly related to elevated BP Trop neg x1, serials pending Carotid US neg CXR neg Stress in AM if trop continues to be neg TSH WNL
[2017-02-09 14:07] LABS: URINE APPEARANCE CLEAR (CLEAR); URINE BILIRUBIN NEG (NEG); URINE COLOR YELLOW; URINE EPITHELIAL CELL AUTO >30 /lpf (0-5); URINE NITRITE NEG (NEG); URINE PH 5.5 (4.5-7.5); URINE SPECIFIC GRAVITY 1.013 (1.000-1.030); UROBILINOGEN NEG (NEG); ZZUR CULT IF INDIC CLEAN CATCH NO
[2017-02-09 14:14] LABS: MANUAL MICROSCOPIC REQUIRED? NO; REVIEW REQ? NO
[2017-02-09] MEDS ORDERED: NITROGLYCERIN 0.4 MG SL PER TAB CHARGE SL PRN (14:30)
[2017-02-09] MEDS ORDERED: POLYETHYLENE (MIRALAX) 17 GM PACK PO PRN (14:30)
[2017-02-09] MEDS ORDERED: IV FLUIDS COMPLETED PRN (15:00)
--- NOTE | 2017-02-09 15:43 | DIAGNOSTIC IMAGING REPORT ---
BILATERAL CAROTID DOPPLER STUDY HISTORY: Headache. Hypertension. Dizziness. r/o stenosis COMPARISON: None. TECHNIQUE: Real-time, grayscale, and color Doppler sonography of the carotid arteries was performed. Imaging reviewed in the transverse and longitudinal planes. All measurements were calculated based on NASCET criteria. FINDINGS: Antegrade flow is seen in the bilateral vertebral arteries. Small focus of soft plaque seen within the proximal right internal carotid artery. The peak systolic velocity within the right ICA is 112 cm/s. The right systolic ratio is 0.8. The peak systolic velocity within the left ICA is 92 cm/s. The left systolic ratio is 0.9. IMPRESSION: No hemodynamically significant stenosis seen within the carotid arteries. Small focus of soft tissue plaque seen within the proximal right internal carotid artery. Electronically signed by: Estevan Jimenez M.D. 02/09/2017 3:42 PM Dictated Date/Time: 02/09/2017 3:40 PM
--- NOTE | 2017-02-09 15:44 | DIAGNOSTIC IMAGING REPORT ---
CHEST 2 VIEWS ROUTINE HISTORY: chest pressure COMPARISON: None. FINDINGS: The lungs are clear. Cardiac silhouette is normal in size. No pleural effusions. No pneumothorax. IMPRESSION: No acute process. Electronically signed by: Estevan Jimenez M.D. 02/09/2017 3:43 PM Dictated Date/Time: 02/09/2017 3:42 PM
[2017-02-09] MEDS: SODIUM CHLORIDE 0.9% 1000ML 1,000 ML IV SCH ×2 (16:02→19:38)
[2017-02-09 16:10] VITALS: BP 181/108; PULSE 84; TEMP 36.8; O2SAT 98; Ht 162.6 cm; Wt 97.2 kg
[2017-02-09] MEDS ORDERED: METOPROLOL TARTRATE 1 MG/ML VIAL IV PRN (16:45)
[2017-02-09] MEDS ORDERED: HydrALAZINE HCL 20 MG/ML VIAL ONE (16:52)
[2017-02-09 19:31] VITALS: BP 162/90; PULSE 83; TEMP 37.1; O2SAT 99
[2017-02-09] MEDS: RANITIDINE HCL 150 MG TAB PO SCH (19:36)
[2017-02-09] MEDS: ENOXAPARIN 40 MG/0.4 ML SYR SC SCH (19:37)
[2017-02-09] MEDS: ACETAMINOPHEN 325 MG TAB PO PRN (19:38)
[2017-02-09] MEDS ORDERED: SIMVASTATIN 20 MG TAB PO SCH (21:00)
[2017-02-09 21:34] VITALS: BP 192/107
[2017-02-09] MEDS: HydrALAZINE HCL 20 MG/ML VIAL IV. PRN (21:34)
[2017-02-09] MEDS: ONDANSETRON INJ 2 MG/ML 2 ML VIAL IV PRN (22:27)
[2017-02-09 23:45] VITALS: BP 177/100; PULSE 80; TEMP 36.6; O2SAT 96
[2017-02-09] MEDS ORDERED: MoRPHine SULFATE 4 MG/ML 1 ML CARP\\VIAL IV SCH (23:45)
[2017-02-09] MEDS ORDERED: METOCLOPRAMIDE HCL INJ 5 MG/ML 2 ML VIAL IV PRN (23:45)
[2017-02-09] MEDS ORDERED: MoRPHine SULFATE 4 MG/ML 1 ML CARP\\VIAL ONE (23:55)
[2017-02-09] MEDS ORDERED: METOCLOPRAMIDE HCL INJ 5 MG/ML 2 ML VIAL ONE (23:55)
[2017-02-10 04:23] LABS: BASO % 0.3 %; BASO ABS # 0.03 K/uL (0-0.2); COMPLETE YES; EOS % 0.2 %; HEMATOCRIT 38.6 % (37-47); IG% 0.3 %; LYMPH % 10.6 %; LYMPH ABS # 0.97 K/uL (1.2-3.4); MEAN CELL VOLUME 82.1 fL (80-100); MEAN CORPUSCULAR HEMOGLOBIN 26.8 pg (25-34); MEAN CORPUSCULAR HGB CONC 32.6 g/dl (32-36); MEAN PLATELET VOLUME 10.2 fL (7.4-10.4); MONO % 4.9 %; NEUT % 83.7 %; PLATELET COUNT 210 K/uL (130-400); WHITE BLOOD COUNT 9.19 K/uL (4.8-10.8)
[2017-02-10 04:39] VITALS: BP 167/97; PULSE 83; TEMP 36.8; O2SAT 97
[2017-02-10] MEDS: HydrALAZINE HCL 20 MG/ML VIAL IV. PRN (04:42)
[2017-02-10 04:43] LABS: BLOOD UREA NITROGEN 11 mg/dl (7-18); BUN/CREATININE RATIO 11.6 (10-20); CALCIUM 8.1 mg/dl (8.5-10.1); CARBON DIOXIDE 23 mmol/L (21-32); CHLORIDE 109 mmol/L (98-107); CREATININE 0.96 mg/dl (0.60-1.20); GLUCOSE 132 mg/dl (70-99); POTASSIUM 3.8 mmol/L (3.5-5.1); SODIUM 140 mmol/L (136-145)
[2017-02-10] MEDS: ACETAMINOPHEN 325 MG TAB PO PRN ×2 (04:43→11:17)
[2017-02-10 04:47] LABS: CHOLESTEROL 223 mg/dl (0-200); CHOLESTEROL/HDL RATIO 4.8; HDL CHOLESTEROL 46 mg/dl; LDL CHOLESTEROL CALCULATED 114 mg/dl; TRIGLYCERIDES 317 mg/dl (0-150); VERY LOW DENSITY LIPOPROT CALC 63 mg/dl
[2017-02-10] MEDS: ONDANSETRON INJ 2 MG/ML 2 ML VIAL IV PRN (05:18)
[2017-02-10] MEDS ORDERED: NURSING VERBAL MED ORDER ONE ×2 (08:00→19:00)
[2017-02-10] MEDS ORDERED: PROMETHAZINE HCL INJ 12.5 MG in SODIUM CHLORIDE 0.9% 50ML 50 ML IV PRN (08:00)
[2017-02-10] MEDS: KETOROLAC TROMETHAMINE 30 MG/ML VIAL IV. PRN ×3 (08:15→21:19)
[2017-02-10 08:52] VITALS: BP 154/79; PULSE 90; TEMP 36.9; O2SAT 99
[2017-02-10] MEDS: RANITIDINE HCL 150 MG TAB PO SCH ×2 (08:53→21:20)
[2017-02-10] MEDS: BuPROPion XL 300 MG TABCR PO SCH (08:54)
[2017-02-10] MEDS: CHOLECALCIFEROL 1000 INTER.UNIT TAB PO SCH (08:54)
[2017-02-10] MEDS: LEFLUNOMIDE 10 MG TAB PO SCH (08:54)
[2017-02-10] MEDS: ESTRADIOL 1 MG TAB PO SCH (08:54)
[2017-02-10] MEDS: FLUOXETINE HCL 20 MG CAP PO SCH (08:54)
[2017-02-10] MEDS ORDERED: LOSARTAN POTASSIUM 50 MG TAB PO SCH (09:00)
[2017-02-10 09:09] LABS: ESTIMATED AVERAGE GLUCOSE 108 mg/dl; HA1C FLAG Normal (Normal)
[2017-02-10 11:42] VITALS: BP 167/89; PULSE 88; TEMP 36.6; O2SAT 99
[2017-02-10 15:50] VITALS: BP 157/87; PULSE 86; TEMP 36.5; O2SAT 97
--- NOTE | 2017-02-10 16:22 | Progress Note ---
Subjective Date of Service: February 10, 2017. Subjective Pt evaluation today including: conversation w/ patient, conversation w/ family , physical exam, chart review, lab review, review of studies, conversation w/ strategy planning consultant, review of inpatient medication list This morning was having headache and nausea, was not able to do a stress test this morning Now is better, no more chest pain Tolerated diet, no headache Problem List Medical Problems: (1) Headache Status: Acute (2) Precordial chest pain Status: Acute Review of Systems Constitutional: No chills, No fatigue, No fever, No problem reported, No sweats , No weakness, No weight loss Eyes: No diplopia, No discharge, No eye pain, No redness, No worsening of vision ENT: No dental problems, No hearing loss, No nasal symptoms, No sore throat, No tinnitus, No trouble swallowing, No unusual epistaxis Respiratory: No cough, No dyspnea at rest, No dyspnea on exertion, No hemoptysis, No shortness of breath, No sputum, No wheezing Cardiac: No PND, No chest pain, No claudication, No edema, No orthopnea, No palpitations Abdomen: No constipation, No diarrhea, No nausea, No pain, No vomiting Musculoskeletal: No calf pain, No joint pain, No muscle pain, No swelling Female : No abnormal vaginal bleeding, No dysuria, No hematuria, No incontinence, No urinary frequency, No vaginal discharge Neurologic: No balance problems, No memory loss, No numbness/tingling, No paralysis, No vertigo, No weakness Psychiatric: No anhedonism, No anxiety, No depression symptoms, No insomnia, No substance abuse Heme: No abnormal bleeding/bruising, No clotting problems, No night sweats, No swollen lymph nodes Endo: No excessive thirst, No excessive urination, No fatigue Skin: No bleeding, No color change, No itch, No new/changing skin lesions, No rash Objective Vital Signs Date Time Temp Pulse Resp B/P Pulse Ox O2 Delivery O2 Flow Rate FiO2 02/10/17 15:50 36.5 86 18 157/87 97 Room Air 02/10/17 12:00 Room Air 02/10/17 11:42 36.6 88 18 167/89 99 Room Air 02/10/17 08:52 36.9 90 16 154/79 99 Room Air 02/10/17 08:00 Room Air 02/10/17 04:39 36.8 83 18 167/97 97 Room Air 02/10/17 04:00 Room Air 02/10/17 00:01 Room Air 02/09/17 23:45 36.6 80 18 177/100 96 Room Air 02/09/17 21:34 192/107 02/09/17 20:00 Room Air 02/09/17 19:31 37.1 83 18 162/90 99 Room Air Physical Exam General Appearance: + obese Eyes: normal inspection, PERRL, EOMI, sclerae normal ENT: normal ENT inspection, hearing grossly normal, pharynx normal Neck: supple, no adenopathy, thyroid normal, no JVD, no carotid bruits, trachea midline Respiratory/Chest: chest non-tender, lungs clear, normal breath sounds, no respiratory distress, no accessory muscle use Cardiovascular: regular rate, rhythm, no edema, no gallop, no JVD, no murmur Abdomen: normal bowel sounds, non tender, soft, no organomegaly, no pulsatile mass Extremities: normal range of motion, non-tender, normal inspection, no pedal edema, no calf tenderness, normal capillary refill, pelvis stable 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, no motor/sensory deficits, alert, normal mood/affect, oriented x 3, + abnormal cerebellar tests Skin: normal color, warm/dry, no rash Lymphatic: no adenopathy Laboratory Results Last 24 Hours Test 02/09/17 20:00 02/09/17 20:12 02/10/17 03:56 02/10/17 04:00 Creatine Kinase MB Ratio Creatine Kinase MB 0.5 ng/ml 0.5 ng/ml Troponin I < 0.015 ng/ml < 0.015 ng/ml White Blood Count 9.19 K/uL Red Blood Count 4.70 M/uL Hemoglobin 12.6 g/dL Hematocrit 38.6 % Mean Corpuscular Volume 82.1 fL Mean Corpuscular Hemoglobin 26.8 pg Mean Corpuscular Hemoglobin Concent 32.6 g/dl Platelet Count 210 K/uL Mean Platelet Volume 10.2 fL Neutrophils (%) (Auto) 83.7 % Lymphocytes (%) (Auto) 10.6 % Monocytes (%) (Auto) 4.9 % Eosinophils (%) (Auto) 0.2 % Basophils (%) (Auto) 0.3 % Neutrophils # (Auto) 7.69 K/uL Lymphocytes # (Auto) 0.97 K/uL Monocytes # (Auto) 0.45 K/uL Eosinophils # (Auto) 0.02 K/uL Basophils # (Auto) 0.03 K/uL RDW Standard Deviation 40.7 fL RDW Coefficient of Variation 13.5 % Immature Granulocyte % (Auto) 0.3 % Immature Granulocyte # (Auto) 0.03 K/uL Sodium Level 140 mmol/L Potassium Level 3.8 mmol/L Chloride Level 109 mmol/L Carbon Dioxide Level 23 mmol/L Anion Gap 8.0 mmol/L Blood Urea Nitrogen 11 mg/dl Creatinine 0.96 mg/dl Est Creatinine Clear Calc Drug Dose 80.4 ml/min Estimated GFR () 80.5 Estimated GFR (Non- 69.4 BUN/Creatinine Ratio 11.6 Random Glucose 132 mg/dl Estimated Average Glucose 108 mg/dl Hemoglobin A1c 5.4 % Calcium Level 8.1 mg/dl Triglycerides Level 317 mg/dl Cholesterol Level 223 mg/dl HDL Cholesterol 46 mg/dl LDL Cholesterol, Calculated 114 mg/dl VLDL Cholesterol, Calculated 63 mg/dl Cholesterol/HDL Ratio 4.8 Assessment and Plan 11 yo F with PMHx of hypertension, hyperlipidemia, morbid obesity, anxiety, depression, rheumatoid arthritis, s/p total hysterectomy in Sep 2016 now on estradiol replacement therapy admitted on 02/09/2017 because of c/o of chest heaviness x several days. Chest pain rule out Cardiac enzyme troponin negative 3 - Checking lipids, A1c morning labs were done - Stress exercise test, was not able to be done this morning, rescheduled for tomorrow morning , - We'll follow-up the results of 2D echo, - carotid Doppler was done: per Report : No hemodynamically significant stenosis seen within the carotid arteries. 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 Recommend him to follow-up with PCP and repeat her carotid Doppler ultrasound in 6 months to 1 year Accelerated hypertension we'll increase to 75 mg QAM Dyslipidemia with an elevated triglyceride and total cholesterol, we will increase to local simvastatin 20 mg to 40 mg Qpm for now, Patient was started on estradiol 2 mg PO daily, replacement therapy at end of November/ of December s/p total hysterectomy in September 2016, Consult patient about risks and benefits of hormone replacement therapy, which include risk of blood clot , she would like to continue and she will take on the risk by herself. Episodes of Headaches, possible migraine which is better - CT of brain was negative for any acute abnormalities - Analgesia with Tylenol 650 mg Q6H prn Depression/anxiety -Continue Wellbutrin SR 300 mg every morning, continue Prozac 40 mg QD Rheumatoid arthritis - Cont leflunomide 20 mg daily DVT prophylaxis: Teds, SCDs, Lovenox CODE STATUS: Full code Discussed with patient and family about the care plan, answer all questions, Continued [facility] stay due to: multiple IV medications needed Discharge planning: home
--- NOTE | 2017-02-10 17:41 | ECHOCARDIOGRAM REPORT ---
*NOTICE TO RECEIVING CONSTITUTION PARTY AGENCY This information is strictly Confidential and protected under [place] law. [place] law prohibits you from making any further disclosure of this information unless further disclosure is expressly permitted by the written consent of the person to whom it pertains or is authorized by law. A general authorization for the release of medical or other information is not sufficient for this purpose. Hospital accepts no responsibility if the information is made available to any other person, INCLUDING THE PATIENT. Interpretation Summary * Name: LAUREEN RM Study Date: 02/10/2017 01:15 PM BP: 167/89 mmHg * Patient Location: C.2T\S\E221\S\1 HR: 88 * : 1965 (M/d/yyyy) Gender: Female Height: 64 in * Age: 51 yrs Ethnicity: CA Weight: 213 lb * Ordering Physician: Esha Cortes * Referring Physician: Gerardo Eli * Performed By: Brie Luna * * Reason For Study: CHEST PAIN * BSA: 2.0 m2 * -- Conclusions -- * 1. Normal left ventricular size and systolic function. EF 60-65%. No regional wall motion abnormalities. No left ventricular hypertrophy. Type 2 diastolic dysfunction, pseudo normalized pattern. * 2. Mild mitral regurgitation. * 3. Normal estimated right ventricular systolic pressure; RVSP 33mmHg. * 4. Technically difficult study, enhanced with IV Definity. * 5. No prior study available for comparison. Procedure Details * A complete two-dimensional transthoracic echocardiogram was performed (2D, M-mode, Doppler and color flow Doppler). * A contrast injection of Definity was performed to improve assessment of LV function. * Contrast was injected into an intravenous site in the right arm. * One vial of Definity ultrasound contrast was diluted in normal saline to a total volume of 10 ml. A total of '2' ml of solution was administered during imaging. * Lot # [id number] of Definity utilized for procedure. * Expiration date 03/04. * The attending nurse who injected the contrast agent was ITALIA ARTEAGA RN. Left Ventricle * Normal left ventricular size and systolic function. EF 60-65%. No regional wall motion abnormalities. No left ventricular hypertrophy. Type 2 diastolic dysfunction, pseudo normalized pattern. Right Ventricle * The right ventricle is normal in size and function. * The right ventricular systolic function is normal as assessed by tricuspid annular plane systolic excursion (TAPSE) (normal >1.5 cm). Atria * The left atrial size is normal. * Right atrial size is normal. * There is no evidence of atrial septal defect, but resolution does not allow assessment for a patent foramen ovale. Mitral Valve * The mitral valve is grossly normal. * There is no mitral valve stenosis. * There is mild mitral regurgitation. Tricuspid Valve * The tricuspid valve is not well visualized, but is grossly normal. * There is no tricuspid stenosis. * There is trace tricuspid regurgitation. Aortic Valve * The aortic valve is normal in structure and function. * The aortic valve is trileaflet. * No hemodynamically significant valvular aortic stenosis. * No aortic regurgitation is present. Pulmonic Valve * The pulmonary valve is inadequately visualized, but the Doppler data is adequate for interpretation. * There is no pulmonic valvular stenosis. * There is no significant pulmonary regurgitation. Great Vessels * The aortic root is normal size. * Aortic arch of normal dimension. * Normal pulmonary venous flow pattern. Pericardium/Pleural * There is no pericardial effusion. Great Vessels * Normal inferior vena cava size and collapsability with sniff indicates a normal right atrial pressure of 3 mmHg MMode 2D Measurements and Calculations IVSd 1.0 cm IVSs 1.1 cm LVIDd 4.5 cm LVIDs 2.7 cm LVPWd 0.74 cm LVPWs 1.5 cm IVS/LVPW 1.4 FS 39.5 % EDV(Teich) 91.7 ml ESV(Teich) 27.4 ml EF(Teich) 70.2 % EDV(cubed) 90.2 ml ESV(cubed) 20.0 ml EF(cubed) 77.8 % % IVS thick 9.4 % % LVPW thick 100.5 % LV mass(C)d 130.0 grams LV mass(C)dI 64.7 grams/m\S\2 LV mass(C)s 109.9 grams LV mass(C)sI 54.7 grams/m\S\2 SV(Teich) 64.4 ml SI(Teich) 32.0 ml/m\S\2 SV(cubed) 70.2 ml SI(cubed) 35.0 ml/m\S\2 Ao root diam 2.8 cm Ao root area 6.1 cm\S\2 ACS 1.4 cm asc Aorta Diam 3.0 cm LVOT diam 1.9 cm LVOT area 2.9 cm\S\2 LVAd ap4 32.3 cm\S\2 LVLd ap4 7.8 cm EDV(MOD-sp4) 107.4 ml EDV(sp4-el) 113.4 ml LVAs ap4 18.4 cm\S\2 LVLs ap4 6.4 cm ESV(MOD-sp4) 43.0 ml ESV(sp4-el) 44.9 ml EF(MOD-sp4) 60.0 % EF(sp4-el) 60.4 % LVAd ap2 34.9 cm\S\2 LVLd ap2 7.9 cm EDV(MOD-sp2) 126.9 ml EDV(sp2-el) 131.6 ml LVAs ap2 19.0 cm\S\2 LVLs ap2 6.3 cm ESV(MOD-sp2) 47.2 ml ESV(sp2-el) 48.5 ml EF(MOD-sp2) 62.8 % EF(sp2-el) 63.1 % LVLd %diff 0.92 % EDV(MOD-bp) 117.4 ml LVLs %diff -0.92 % ESV(MOD-bp) 45.3 ml EF(MOD-bp) 61.4 % SV(MOD-sp4) 64.4 ml SI(MOD-sp4) 32.0 ml/m\S\2 SV(MOD-sp2) 79.8 ml SI(MOD-sp2) 39.7 ml/m\S\2 SV(MOD-bp) 72.1 ml SI(MOD-bp) 35.9 ml/m\S\2 SV(sp4-el) 68.5 ml SI(sp4-el) 34.1 ml/m\S\2 SV(sp2-el) 83.0 ml SI(sp2-el) 41.3 ml/m\S\2 Doppler Measurements and Calculations MV E max mariel 119.6 cm/sec MV A max mariel 103.0 cm/sec MV E/A 1.2 MV dec time 0.19 sec Ao V2 max 137.7 cm/sec Ao max PG 7.6 mmHg Ao max PG (full) 2.9 mmHg CINDY(V,A) 2.2 cm\S\2 CINDY(V,D) 2.2 cm\S\2 LV V1 max PG 4.6 mmHg LV V1 max 107.8 cm/sec TV E max mariel 74.7 cm/sec PA V2 max 77.1 cm/sec PA max PG 2.4 mmHg TR max mariel 273.1 cm/sec RVSP(TR) 32.8 mmHg RAP systole 3.0 mmHg
[2017-02-10 20:06] VITALS: BP 186/86; PULSE 89; TEMP 37.1; O2SAT 96
[2017-02-10] MEDS: ENOXAPARIN 40 MG/0.4 ML SYR SC SCH (21:19)
[2017-02-10] MEDS: SIMVASTATIN 40 MG TAB PO SCH (21:19)
[2017-02-10 23:41] VITALS: BP 163/81; PULSE 86; TEMP 36.8; O2SAT 95
[2017-02-11] VITALS (9 sets, daily range): BP systolic 153–196; BP diastolic 78–111; PULSE 74–84; TEMP 36.4–37.1; O2SAT 95–98
[2017-02-11 07:53] LABS: BASO % 0.3 %; BASO ABS # 0.02 K/uL (0-0.2); COMPLETE YES; EOS % 1.9 %; HEMATOCRIT 37.7 % (37-47); IG% 0.3 %; LYMPH % 29.4 %; LYMPH ABS # 1.98 K/uL (1.2-3.4); MEAN CELL VOLUME 83.4 fL (80-100); MEAN CORPUSCULAR HEMOGLOBIN 28.1 pg (25-34); MEAN CORPUSCULAR HGB CONC 33.7 g/dl (32-36); MEAN PLATELET VOLUME 10.4 fL (7.4-10.4); MONO % 10.2 %; NEUT % 57.9 %; PLATELET COUNT 193 K/uL (130-400); RED BLOOD COUNT 4.52 M/uL (4.2-5.4); WHITE BLOOD COUNT 6.74 K/uL (4.8-10.8)
[2017-02-11] MEDS: RANITIDINE HCL 150 MG TAB PO SCH ×2 (08:02→20:54)
[2017-02-11] MEDS: LOSARTAN POTASSIUM 50 MG TAB PO SCH (08:03)
[2017-02-11] MEDS: BuPROPion XL 300 MG TABCR PO SCH (08:03)
[2017-02-11] MEDS: LEFLUNOMIDE 10 MG TAB PO SCH (08:03)
[2017-02-11] MEDS: CHOLECALCIFEROL 1000 INTER.UNIT TAB PO SCH (08:04)
[2017-02-11] MEDS: FLUOXETINE HCL 20 MG CAP PO SCH (08:04)
[2017-02-11] MEDS: ESTRADIOL 1 MG TAB PO SCH (08:04)
[2017-02-11 08:20] LABS: BUN/CREATININE RATIO 14.1 (10-20); CREATININE 0.98 mg/dl (0.60-1.20); POTASSIUM 3.4 mmol/L (3.5-5.1)
[2017-02-11 08:28] LABS: CALCIUM 8.4 mg/dl (8.5-10.1)
[2017-02-11] MEDS: KETOROLAC TROMETHAMINE 30 MG/ML VIAL IV. PRN ×2 (08:43→20:55)
[2017-02-11] MEDS ORDERED: CZR50 PO (11:28)
[2017-02-11] MEDS ORDERED: ZCR40 PO (11:28)
--- NOTE | 2017-02-11 11:33 | Discharge Instructions ---
Discharge Instructions Date of Service February 11, 2017. Admission Reason for Admission: Chest Pain Discharge Discharge Diagnosis / Problem: atypical chest pain , accelerated hypertension Discharge Goals Goal(s): Decrease discomfort, Improve function, Increase independence, Improve disease control, Improve nutritional status, Learn about illness, Diagnostic testing, Therapeutic intervention, Prevent Disease Progression, Specific goals Activity Recommendations Activity Limitations: resume your previous activity Exercise/Sports Limitations: none . Instructions / Follow-Up Instructions / Follow-Up You have atypical Chest pain You have Accelerated hypertension , I have increased losartan to 75 mg QAM You need to check blood pressure 2 time a day, writing down the number, and present to your family doctor in the follow-up visit in 5-7 days You need to go to the emergency known if systolic blood pressure more than 200, or diastolic blood pressure more than 100, You have Dyslipidemia with an elevated triglyceride and total cholesterol, I have increased simvastatin 20 mg to 40 mg Qpm - you need to follow up with your primary care physician - take medication as instructed, never overdose or any misuse, or take with alcohol, because misuse of medicine may cause organ damage or , call your primary care physician if have questions of medicaitons. - call your primary care physician OR go to local emergency room if has any fever/chill, chest pain, shortness of breathing, nausea/vomiting/abdominal pain , facial droop/slurry speech/local weakness, or if has any questions. - fall precaution - diet as instructed - you need to follow up with your subspecialist - you should understand that it is important to follow up the above instruction , and "not following the above instruction" may cause delayed or missed care of your medical conditions which may cause permanent organ damage and even . Current Hospital Diet Patient's current hospital diet: AHA Diet (Heart Healthy) Discharge Diet Recommended Diet: AHA Diet (Heart Healthy) Procedures Procedures Performed: no Pending Studies Studies pending at discharge: no Laboratory Results Hemoglobin A1c Test 02/10/17 03:56 Range/Units Estimated Average Glucose 108 mg/dl Hemoglobin A1c 5.4 4.5-5.6 % Lipid Panel Test 02/10/17 03:56 Range/Units Triglycerides Level 317 H 0-150 mg/dl Cholesterol Level 223 H 0-200 mg/dl HDL Cholesterol 46 mg/dl Cholesterol/HDL Ratio 4.8 LDL Cholesterol, Calculated 114 mg/dl Medical Emergencies . Who to Call and When: Medical Emergencies: If at any time you feel your situation is an emergency, please call 911 immediately. . Non-Emergent Contact Non-Emergency issues call your: Primary Care Provider . . "Provider Documentation" section prepared by Gideon Florez. . VTE Core Measure Inpt VTE Proph given/why not?: Enoxaparin (Lovenox)RADHA, TSourav. Ayah, SCD's
--- NOTE | 2017-02-11 11:42 | Discharge Summary ---
Discharge Summary Date of Service February 11, 2017. Discharge Summary Admission Date: February 09, 2017 at 14:24 Discharge Date: February 11, 2017 Principal Diagnosis: atypical Chest pain Problems/Secondary Diagnoses: Accelerated hypertension , Procedures: Stress test Consultations: No Medication Reconciliation New Medications: Losartan Potassium (Losartan Potassium) 50 Mg Tab 75 MG PO QAM for 30 Days, #45 TAB Simvastatin (Simvastatin) 40 Mg Tab 40 MG PO QPM for 30 Days, TAB Continued Medications: Bupropion Hcl (Wellbutrin Xl) 300 Mg Tab 300 MG PO QAM, TAB TAKE AM SURGERY SIP WATER Cholecalciferol (Vitamin D3) 5,000 Unit Tab 1 TAB PO QAM Estradiol (Estradiol) 2 Mg Tab 2 MG PO DAILY Fluoxetine (Prozac) 40 Mg Cap 40 MG PO QAM, CAP TAKE AM SURGERY SIP WATER Ibuprofen (Ibuprofen) 600 Mg Tab 600 MG PO Q6H PRN for Pain,EWING,cramping,or fever, #30 TAB Leflunomide (Arava) 20 Mg Tab 20 MG PO DAILY, TAB PT WILL CHECK WITH HUMAN RESOURCES BENEFITS ASSISTANT/SURGEON FOR INSTRUCTIONS Lorazepam (Ativan) 1 Mg Tab 1 MG PO PRN, TAB MAY TAKE AM SURGERY SIP WATER IF NEEDED Ranitidine (Zantac) 150 Mg Tab 150 MG PO BID, TAB TAKE AM SURGERY SIP WATER Discontinued Medications: Losartan Potassium (Cozaar) 50 Mg Tab 50 MG PO QAM, TAB HOLD AM SURGERY Simvastatin (Zocor) 20 Mg Tab 20 MG PO QPM, TAB Discharge Exam Up and walk, no complaint Review of Systems: Constitutional: No chills, No fatigue, No fever, No problem reported, No sweats, No weakness, No weight loss Eyes: No diplopia, No discharge, No eye pain, No problem reported, No redness, No worsening of vision ENT: No dental problems, No hearing loss, No nasal symptoms, No problem reported, No sore throat, No tinnitus, No trouble swallowing, No unusual epistaxis Respiratory: No cough, No dyspnea at rest, No dyspnea on exertion, No hemoptysis, No problem reported, No shortness of breath, No sputum, No wheezing Cardiovascular: No PND, No chest pain, No claudication, No edema, No orthopnea, No palpitations, No problem reported Abdomen: No GI bleeding, No constipation, No diarrhea, No nausea, No pain, No problem reported, No vomiting Musculoskeletal: No calf pain, No joint pain, No muscle pain, No problem reported, No swelling Genitourinary - Female: No dysmenorrhea, No dysuria, No hematuria, No menorrhagia, No metrorrhagia, No , No problem reported, No rash, No urinary frequency, No urinary incontinence, No urinary retention, No urinary urgency, No vaginal bleeding, No vaginal discharge, No vaginal itching, No vulvodynia Neurologic: No balance problems, No memory loss, No numbness/tingling, No paralysis, No problem reported, No vertigo, No weakness Psychiatric: No anhedonism, No anxiety, No depression symptoms, No insomnia , No problem reported, No substance abuse Endocrine: No excessive thirst, No excessive urination, No fatigue, No problem reported Hematologic / Lymphatic: No abnormal bleeding/bruising, No clotting problems , No night sweats, No problem reported, No swollen lymph nodes Integumentary: No bleeding, No color change, No itch, No new/changing skin lesions, No problem reported, No rash Physical Exam: General Appearance: WD/WN, no apparent distress, + obese Eyes: normal inspection, PERRL ENT: normal ENT inspection, hearing grossly normal Neck: supple, no adenopathy, thyroid normal Respiratory/Chest: chest non-tender, normal breath sounds, no respiratory distress, + decreased breath sounds Cardiovascular: regular rate, rhythm, no edema, no gallop, no JVD Abdomen / GI: normal bowel sounds, non tender, soft, no organomegaly, no pulsatile mass Extremities: normal inspection, no calf tenderness, normal capillary refill 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 Chest pain, which is atypical chest pain, stress echo was negative per verbal report from social services analyst, has rule out ACS Cardiac enzyme troponin negative 3 - Checked lipids was checked PCP note, A1c was 5.4 - carotid Doppler was done: per Report : No hemodynamically significant stenosis seen within the carotid arteries. 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 Recommend him to follow-up with PCP and repeat her carotid Doppler ultrasound in 6 months to 1 year, PCP please follow-up this Accelerated hypertension we'll increase to 75 mg QAM Discussed with patient and in detail about proper pressure control, which include diet, take medicine regularly, and check blood pressure 2 times a day, and in the number to PCP to adjust the dose Dyslipidemia with an elevated triglyceride and total cholesterol, we will increase to local simvastatin 20 mg to 40 mg Qpm for now, Patient was started on estradiol 2 mg PO daily, replacement therapy at end of November/beg of December s/p total hysterectomy in September 2016, Consult patient about risks and benefits of hormone replacement therapy, which include risk of blood clot , she would like to continue and she will take on the risk by herself. Episodes of Headaches, possible migraine which is better - CT of brain was negative for any acute abnormalities - Analgesia with Tylenol 650 mg Q6H prn Depression/anxiety -Continue Wellbutrin SR 300 mg every morning, continue Prozac 40 mg QD Rheumatoid arthritis - Cont leflunomide 20 mg daily DVT prophylaxis: Teds, SCDs, Lovenox CODE STATUS: Full code Discussed with patient and family about the care plan, answer all questions Discharge instruction You have atypical Chest pain You have Accelerated hypertension , I have increased losartan to 75 mg QAM You need to check blood pressure 2 time a day, writing down the number, and present to your family doctor in the follow-up visit in 5-7 days You need to go to the emergency known if systolic blood pressure more than 200, or diastolic blood pressure more than 100, You have Dyslipidemia with an elevated triglyceride and total cholesterol, I have increased simvastatin 20 mg to 40 mg Qpm Discharge instruction - you need to follow up with your primary care physician - take medication as instructed, never overdose or any misuse, or take with alcohol, because misuse of medicine may cause organ damage or , call your primary care physician if have questions of medicaitons. - call your primary care physician OR go to local emergency room if has any fever/chill, chest pain, shortness of breathing, nausea/vomiting/abdominal pain , facial droop/slurry speech/local weakness, or if has any questions. - fall precaution - diet as instructed - you need to follow up with your subspecialist - you should understand that it is important to follow up the above instruction , and "not following the above instruction" may cause delayed or missed care of your medical conditions which may cause permanent organ damage and even . Total Time Spent: Greater than 30 minutes This includes examination of the patient, discharge planning, medication reconciliation, and communication with other providers. Discharge Instructions Please refer to the electronic Patient Visit Report (Discharge Instructions) for additional information. Additional Copies To Gerardo Eli M.D.
[2017-02-11] MEDS ORDERED: METOPROLOL TARTRATE 25 MG TAB PO STA (16:29)
--- NOTE | 2017-02-11 16:29 | Progress Note ---
Subjective Date of Service: February 11, 2017. Subjective Pt evaluation today including: conversation w/ patient, conversation w/ family , physical exam, chart review, lab review, review of studies, review of inpatient medication list Was planning to discharge today, however discharge was on hold because of significant accelerated hypertension Problem List Medical Problems: (1) Headache Status: Acute (2) Precordial chest pain Status: Acute Review of Systems Constitutional: No chills, No fatigue, No fever, No problem reported, No sweats , No weakness, No weight loss Eyes: No diplopia, No discharge, No eye pain, No redness, No worsening of vision ENT: No dental problems, No hearing loss, No nasal symptoms, No sore throat, No tinnitus, No trouble swallowing, No unusual epistaxis Respiratory: No cough, No dyspnea at rest, No dyspnea on exertion, No hemoptysis, No shortness of breath, No sputum, No wheezing Cardiac: No PND, No chest pain, No claudication, No edema, No orthopnea, No palpitations Abdomen: No constipation, No diarrhea, No nausea, No pain, No vomiting Musculoskeletal: No calf pain, No joint pain, No muscle pain, No swelling Female : No abnormal vaginal bleeding, No dysuria, No hematuria, No incontinence, No urinary frequency, No vaginal discharge Neurologic: No balance problems, No memory loss, No numbness/tingling, No paralysis, No vertigo, No weakness Psychiatric: No anhedonism, No anxiety, No depression symptoms, No insomnia, No substance abuse Heme: No abnormal bleeding/bruising, No clotting problems, No night sweats, No swollen lymph nodes Endo: No excessive thirst, No excessive urination, No fatigue Skin: No bleeding, No color change, No itch, No new/changing skin lesions, No rash Objective Vital Signs Date Time Temp Pulse Resp B/P Pulse Ox O2 Delivery O2 Flow Rate FiO2 02/11/17 16:05 182/111 02/11/17 15:28 84 96 02/11/17 15:25 37.1 83 18 196/104 98 Room Air 180/110 02/11/17 15:22 37.1 84 18 95 Room Air 02/11/17 12:00 Room Air 02/11/17 10:37 37.1 84 18 167/94 95 Room Air 02/11/17 08:00 Room Air 02/11/17 07:42 36.4 81 18 189/96 96 Room Air 02/11/17 04:12 37.0 81 18 169/78 96 Room Air 02/11/17 04:00 Room Air 02/11/17 00:01 Room Air 02/10/17 23:41 36.8 86 18 163/81 95 Room Air 02/10/17 20:06 37.1 89 18 186/86 96 Room Air 02/10/17 20:00 Room Air Physical Exam General Appearance: WD/WN, no apparent distress Eyes: normal inspection, PERRL, EOMI, sclerae normal ENT: normal ENT inspection, hearing grossly normal, pharynx normal Neck: supple, no adenopathy, thyroid normal, no JVD, no carotid bruits, trachea midline Respiratory/Chest: chest non-tender, lungs clear, normal breath sounds, no respiratory distress, no accessory muscle use Cardiovascular: regular rate, rhythm, no edema, no gallop, no JVD, no murmur Abdomen: normal bowel sounds, non tender, soft, no organomegaly, no pulsatile mass Extremities: normal range of motion, non-tender, normal inspection, no pedal edema, no calf tenderness, normal capillary refill, pelvis stable Neurologic/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, no motor/sensory deficits, alert, normal mood/affect, oriented x 3, + abnormal cerebellar tests Skin: normal color, warm/dry, no rash Lymphatic: no adenopathy Laboratory Results Last 24 Hours Test 02/11/17 07:35 White Blood Count 6.74 K/uL Red Blood Count 4.52 M/uL Hemoglobin 12.7 g/dL Hematocrit 37.7 % Mean Corpuscular Volume 83.4 fL Mean Corpuscular Hemoglobin 28.1 pg Mean Corpuscular Hemoglobin Concent 33.7 g/dl Platelet Count 193 K/uL Mean Platelet Volume 10.4 fL Neutrophils (%) (Auto) 57.9 % Lymphocytes (%) (Auto) 29.4 % Monocytes (%) (Auto) 10.2 % Eosinophils (%) (Auto) 1.9 % Basophils (%) (Auto) 0.3 % Neutrophils # (Auto) 3.90 K/uL Lymphocytes # (Auto) 1.98 K/uL Monocytes # (Auto) 0.69 K/uL Eosinophils # (Auto) 0.13 K/uL Basophils # (Auto) 0.02 K/uL RDW Standard Deviation 41.4 fL RDW Coefficient of Variation 13.8 % Immature Granulocyte % (Auto) 0.3 % Immature Granulocyte # (Auto) 0.02 K/uL Sodium Level 143 mmol/L Potassium Level 3.4 mmol/L Chloride Level 111 mmol/L Carbon Dioxide Level 25 mmol/L Anion Gap 7.0 mmol/L Blood Urea Nitrogen 14 mg/dl Creatinine 0.98 mg/dl Est Creatinine Clear Calc Drug Dose 78.4 ml/min Estimated GFR () 78.5 Estimated GFR (Non- 67.7 BUN/Creatinine Ratio 14.1 Random Glucose 93 mg/dl Calcium Level 8.4 mg/dl Assessment and Plan 51 yo F with PMHx of hypertension, hyperlipidemia, morbid obesity, anxiety, depression, rheumatoid arthritis, s/p total hysterectomy in Sep 2016 now on estradiol replacement therapy admitted on 02/09/2017 because of c/o of chest heaviness x several days. Chest pain, which is atypical chest pain, stress echo was negative per verbal report from gear machinist, has rule out ACS Cardiac enzyme troponin negative 3 - Checked lipids was checked PCP note, A1c was 5.4 - carotid Doppler was done: per Report : No hemodynamically significant stenosis seen within the carotid arteries. 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 Continue losartan for now, add beta geoff Discussed with patient and in detail about proper pressure control, which include diet, take medicine regularly, and check blood pressure 2 times a day, and in the number to PCP to adjust the dose Dyslipidemia with an elevated triglyceride and total cholesterol, we will increase to local simvastatin 20 mg to 40 mg Qpm for now, Patient was started on estradiol 2 mg PO daily, replacement therapy at end of November/december s/p total hysterectomy in September 2016, Consult patient about risks and benefits of hormone replacement therapy, which include risk of blood clot , she would like to continue and she will take on the risk by herself. Episodes of Headaches, possible migraine which is better - CT of brain was negative for any acute abnormalities - Analgesia with Tylenol 650 mg Q6H prn Depression/anxiety -Continue Wellbutrin SR 300 mg every morning, continue Prozac 40 mg QD Rheumatoid arthritis - Cont leflunomide 20 mg daily DVT prophylaxis: Teds, SCDs, Lovenox CODE STATUS: Full code Discussed with patient and family about the care plan, answer all questions Continued [facility] stay due to: multiple IV medications needed Discharge planning: home
[2017-02-11] MEDS: HydrALAZINE HCL 20 MG/ML VIAL IV. PRN (16:54)
--- NOTE | 2017-02-11 18:05 | EXERCISE STRESS ECHO ---
*NOTICE TO RECEIVING DEMOCRAT AGENCY This information is strictly Confidential and protected under [place] law. [place] law prohibits you from making any further disclosure of this information unless further disclosure is expressly permitted by the written consent of the person to whom it pertains or is authorized by law. A general authorization for the release of medical or other information is not sufficient for this purpose. Hospital accepts no responsibility if the information is made available to any other person, INCLUDING THE PATIENT. Interpretation Summary * Name: LAUREEN RM Study Date: 02/11/2017 08:58 AM BP: 176/92 mmHg * Patient Location: C.2T\S\E221\S\1 HR: 80 * : 1965 (M/d/yyyy) Gender: Female Height: 64 in * Age: 51 yrs Ethnicity: [place] Weight: 213 lb * Ordering Physician: Esha Cortes * Referring Physician: Gerardo Eli * Performed By: Brie Luna * * Reason For Study: CHEST PAIN * BSA: 2.0 m2 * -- Conclusions -- * Stress Echo: * 1. Negative stress echo for ischemia at 93% MPHR. * 2. Indeterminate exercise ECG due to significant artifact, but no significant ST changes noted in recovery. * 3. No arrhythmia. * 4. No chest pain reported. * 5. Hypertensive response to exercise. * 6. Fair exercise tolerance. * 7. Technically difficult study, enhanced with IV Definity. Procedure Details * A contrast injection of Definity was performed to improve assessment of LV function. * Contrast was injected into an intravenous site in the left arm. * One vial of Definity ultrasound contrast was diluted in normal saline to a total volume of 10 ml. A total of '5.5' ml of solution was administered during imaging. * Lot # [id number] of Definity utilized for procedure. * Expiration date 03/04. Left Ventricle * The left ventricle is normal in size. * Left ventricular systolic function is normal. * The left ventricular ejection fraction increases normally with stress. The left ventricular end-systolic cavity size reduces post-stress (normal response). The left ventricular wall motion with stress is normal. * Resting wall motion: Normal. Stress wall motion: Appropriate increase in Left ventricular systolic function and decrease in cavity size. No stress induced segmental wall motion abnormalities. Stress Parameters * Sinus rhythm 84 bpm. Nonspecific T-wave abnormality. * No significant ST abnormalities noted, however there was significant artifact at peak exercise. No arrhythmia. * The stress portion of this study was personally supervised by the undersigned interpreting physician. * Rest heart rate was '80' BPM. * Rest blood pressure was '176/92' * Maximum heart rate achieved was 160 bpm. * Maximum heart rate was 93 % of maximum age-predicted heart rate. * Maximum blood pressure was '220/100' * Total exercise time was '6:50' * Maximum exercise MET level achieved was '8.20' METS * Maximum treadmill speed was '3.30' miles per hour. * Maximum treadmill elevation was '14.00'% grade. * Exercise was terminated due to 'Fatigue' * Exercise-induced hypertension.
[2017-02-11] MEDS: SIMVASTATIN 40 MG TAB PO SCH (20:54)
[2017-02-11] MEDS: METOPROLOL TARTRATE 25 MG TAB PO SCH (20:54)
[2017-02-11] MEDS: ENOXAPARIN 40 MG/0.4 ML SYR SC SCH (20:56)
[2017-02-12 00:02] VITALS: BP 161/89; PULSE 73; TEMP 37; O2SAT 97
[2017-02-12 04:48] VITALS: BP 144/84; PULSE 71; TEMP 36.6; O2SAT 98
[2017-02-12 07:20] VITALS: BP 151/88; PULSE 69; TEMP 36.7; O2SAT 97
[2017-02-12 07:25] LABS: BASO % 0.5 %; BASO ABS # 0.04 K/uL (0-0.2); COMPLETE YES; EOS % 2.1 %; HEMATOCRIT 39.4 % (37-47); IG% 0.4 %; LYMPH % 25.4 %; LYMPH ABS # 2.17 K/uL (1.2-3.4); MEAN CELL VOLUME 82.8 fL (80-100); MEAN CORPUSCULAR HEMOGLOBIN 27.9 pg (25-34); MEAN CORPUSCULAR HGB CONC 33.8 g/dl (32-36); MEAN PLATELET VOLUME 10.2 fL (7.4-10.4); MONO % 10.8 %; NEUT % 60.8 %; PLATELET COUNT 206 K/uL (130-400); RED BLOOD COUNT 4.76 M/uL (4.2-5.4); WHITE BLOOD COUNT 8.53 K/uL (4.8-10.8)
[2017-02-12] MEDS: LOSARTAN POTASSIUM 50 MG TAB PO SCH (08:17)
[2017-02-12] MEDS: FLUOXETINE HCL 20 MG CAP PO SCH (08:17)
[2017-02-12] MEDS: BuPROPion XL 300 MG TABCR PO SCH (08:17)
[2017-02-12] MEDS: CHOLECALCIFEROL 1000 INTER.UNIT TAB PO SCH (08:17)
[2017-02-12] MEDS: ESTRADIOL 1 MG TAB PO SCH (08:17)
[2017-02-12] MEDS: LEFLUNOMIDE 10 MG TAB PO SCH (08:17)
[2017-02-12] MEDS: RANITIDINE HCL 150 MG TAB PO SCH (08:17)
[2017-02-12] MEDS: METOPROLOL TARTRATE 25 MG TAB PO SCH (08:17)
[2017-02-12 12:00] VITALS: BP 168/96; PULSE 71; TEMP 36.7; O2SAT 95
[2017-02-12] MEDS ORDERED: CZR50 PO (12:08)
--- NOTE | 2017-02-12 16:46 | Discharge Summary ---
Discharge Summary Date of Service February 12, 2017. Discharge Summary Admission Date: February 11, 2017 at 16:22 Discharge Date: February 11, 2017 Discharge Disposition: Home Principal Diagnosis: atypical chest pain, accelerated HTN Medication Reconciliation New Medications: Losartan Potassium (Losartan Potassium) 50 Mg Tab 100 MG PO QAM for 30 Days, #60 TAB Simvastatin (Simvastatin) 40 Mg Tab 40 MG PO QPM for 30 Days, TAB Continued Medications: Bupropion Hcl (Wellbutrin Xl) 300 Mg Tab 300 MG PO QAM, TAB TAKE AM SURGERY SIP WATER Cholecalciferol (Vitamin D3) 5,000 Unit Tab 1 TAB PO QAM Estradiol (Estradiol) 2 Mg Tab 2 MG PO DAILY Fluoxetine (Prozac) 40 Mg Cap 40 MG PO QAM, CAP TAKE AM SURGERY SIP WATER Ibuprofen (Ibuprofen) 600 Mg Tab 600 MG PO Q6H PRN for Pain,EWING,cramping,or fever, #30 TAB Leflunomide (Arava) 20 Mg Tab 20 MG PO DAILY, TAB PT WILL CHECK WITH KNIFE FINISHER/SURGEON FOR INSTRUCTIONS Lorazepam (Ativan) 1 Mg Tab 1 MG PO PRN, TAB MAY TAKE AM SURGERY SIP WATER IF NEEDED Ranitidine (Zantac) 150 Mg Tab 150 MG PO BID, TAB TAKE AM SURGERY SIP WATER Discontinued Medications: Losartan Potassium (Cozaar) 50 Mg Tab 50 MG PO QAM, TAB HOLD AM SURGERY Simvastatin (Zocor) 20 Mg Tab 20 MG PO QPM, TAB Discharge Exam Review of Systems: Constitutional: No chills, No fever Respiratory: No cough, No sputum, No wheezing Cardiovascular: No chest pain, No orthopnea Abdomen: No nausea, No pain Musculoskeletal: No joint pain, No muscle pain Genitourinary - Female: No dysuria, No urinary frequency Genitourinary - Male: No dysuria, No hematuria Psychiatric: No anhedonism, No depression symptoms Physical Exam: General Appearance: WD/WN, + mild distress Eyes: PERRL, EOMI Neck: supple, no JVD Respiratory/Chest: chest non-tender, lungs clear, normal breath sounds Cardiovascular: regular rate, rhythm, no murmur Abdomen / GI: normal bowel sounds, non tender, soft Extremities: no pedal edema, normal range of motion Neurologic/Psychiatric: alert, oriented x 3 Skin: normal color, warm/dry Hospital Course 51 yo F admitted with chest pain, underwent, delayed DC due to blood pressure control , PMHx of hypertension, hyperlipidemia, morbid obesity, anxiety, depression, rheumatoid arthritis, s/p total hysterectomy in Sep 2016 Chest pain, which is atypical chest pain, stress echo was negative per report from investment banking associate, has rule out ACS carotid Doppler was done: per Report : No hemodynamically significant stenosis seen within the carotid arteries. 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 Recommend him to follow-up with PCP and repeat her carotid Doppler ultrasound in 6 months to 1 year, PCP Accelerated hypertension pt has better control will have home on increased losartan, pending outpt renal doppler and pheo workup Dyslipidemia with an elevated triglyceride and total cholesterol, increased simvastatin 20 mg to 40 mg Patient was started on estradiol 2 mg PO daily, replacement therapy at end of November/ of December s/p total hysterectomy in September 2016, Dr Florez discussed with the patient about risks and benefits of hormone replacement therapy, which include risk of blood clot , she would like to continue Episodes of Headaches, possible migraine which is better - CT of brain was negative for any acute abnormalities Depression/anxiety Wellbutrin SR 300 mg every morning, continue Prozac 40 mg QD Rheumatoid arthritis leflunomide 20 mg daily DVT prophylaxis: Teds, SCDs, Lovenox CODE STATUS: Full code Total Time Spent: Greater than 30 minutes This includes examination of the patient, discharge planning, medication reconciliation, and communication with other providers. Discharge Instructions Please refer to the electronic Patient Visit Report (Discharge Instructions) for additional information.
[2017-02-19 04:23] LABS: NORMETANEPHRINE PLASMA 90 pg/mL (<=148); TOTAL METANEPHRINE PLASMA 90 pg/mL (<=205)
== END 2017-02-12 15:15 | disposition home or self-care (01) | DRG 313 ==
LOC: ENRESERVDT → ENRESERVTM → C.EDB 10:57 → C.2T 14:24 → OBSVTOIN 02-11 16:22
PROVIDERS: ADMIT Family Medicine; ATTEND Hospitalist
DX: R07.89 Other chest pain (principal); I10 Essential (primary) hypertension; E78.5 Hyperlipidemia, unspecified; M06.9 Rheumatoid arthritis, unspecified; G43.909 Migraine, unspecified, not intractable, without status migrainosus; F41.9 Anxiety disorder, unspecified; F32.9 Major depressive disorder, single episode, unspecified; E66.01 Morbid (severe) obesity due to excess calories; Z68.38 Body mass index [BMI] 38.0-38.9, adult; Z82.49 Family history of ischemic heart disease and other diseases of the circulatory system; Z79.890 Hormone replacement therapy; Z79.899 Other long term (current) drug therapy

== ENCOUNTER 2017-02-15 15:29 | Emergency (ER) | payer BC ==
[~2017-02-15] VITALS: Ht 160 cm; Wt 96.1 kg
[~2017-02-15 15:29] MED LIST changes: -CLB/200 PO; +CZR50 PO; +ESTRD2 PO; -IBUP-103 PO; -LORA-749 PO; -LOSA50TA6 PO; -OXYC-57 PO; -SIMV20TA5 PO; +ZCR40 PO
[2017-02-15 15:34] VITALS: TEMP 36.8; Ht 160 cm; Wt 96.1 kg
[2017-02-15] MEDS ORDERED: ONDANSETRON INJ 2 MG/ML 2 ML VIAL IV STA (16:16)
[2017-02-15] MEDS ORDERED: KETOROLAC TROMETHAMINE 30 MG/ML VIAL IV STA (16:16)
[2017-02-15] MEDS ORDERED: MoRPHine SULFATE 4 MG/ML 1 ML CARP\\VIAL IV STA (16:16)
--- NOTE | 2017-02-15 16:26 | DIAGNOSTIC IMAGING REPORT ---
CHEST ONE VIEW PORTABLE CLINICAL HISTORY: Fever and sepsis COMPARISON STUDY: 02/09/2017 FINDINGS: The cardiac and mediastinal contours are normal. There is no evidence of focal pulmonary consolidation. There is no evidence of failure. No pleural effusions are visualized.[ IMPRESSION: No active disease in the chest. Electronically signed by: Fermin Quinones M.D. 02/15/2017 4:24 PM Dictated Date/Time: 02/15/2017 4:24 PM
--- NOTE | 2017-02-15 16:28 | EMERGENCY ROOM VISIT NOTE ---
History First contact with patient: 15:45 Chief Complaint: CHEST PAIN Stated Complaint: CHEST PAIN - BP History of Present Illness The patient is a 51 year old female who presents to the Emergency Room with complaints of chest discomfort and headache. The patient presented with chest pain this morning that she describes as chest tightness with associated numbness in her arms as well as shortness of breath. She states that it is not pain she is feeling and that it is very similar to the pain that she presented with last week. The patient was admitted with similar complaints and discharged on 02/09. She was worked up for chest pain and migraines with EKG, Chest Xray, Head CT, Troponin, D-Dimer, and stress ECHO that were all non-contributory. The patient had relief of chest pain and migraine on discharge. Both complaints have been constant and the patient also states that her systolic blood pressure this morning was in the 180s and 190s. She denies any abdominal pain, nausea, fever, chills, diarrhea, constipation, back pain, dysuria, changes in vision, photophobia, or confusion. She states that she does have a history of chronic migraines. Review of Systems See HPI for pertinent positives and negatives. A total of ten systems were reviewed and were otherwise negative. Past Medical/Surgical History Medical Problems: (1) Anxiety (2) Chest pain (3) Depression (4) failed ablation (5) GERD (gastroesophageal reflux disease) (6) Hyperlipidemia (7) Hypertension (8) Menorrhagia Social History Smoking Status: Never Smoker Drug Use: none Marital Status: Occupation Status: employed Current/Historical Medications Scheduled Bupropion Hcl (Wellbutrin Xl), 300 MG PO QAM Cholecalciferol (Vitamin D3), 1 TAB PO QAM Estradiol (Estradiol), 2 MG PO DAILY Fluoxetine (Prozac), 40 MG PO QAM Leflunomide (Arava), 20 MG PO DAILY Lorazepam (Ativan), 1 MG PO PRN Losartan Potassium (Losartan Potassium), 100 MG PO QAM Ranitidine (Zantac), 150 MG PO BID Simvastatin (Simvastatin), 40 MG PO QPM Scheduled PRN Ibuprofen (Ibuprofen), 600 MG PO Q6H PRN for Pain,EWING,cramping,or fever Allergies Coded Allergies: NO KNOWN DRUG ALLERGIES (Verified Allergy, Unknown, ., 02/09/17) [place] (Verified Allergy, Unknown, HIVES, 02/09/17) Physical Exam Vital Signs Date Time Temp Pulse Resp B/P (MAP) Pulse Ox O2 Delivery O2 Flow Rate FiO2 02/15/17 16:58 80 02/15/17 16:52 80 16 171/82 98 02/15/17 16:50 98 Room Air 02/15/17 16:49 98 Room Air 02/15/17 15:34 36.8 105 18 195/112 99 Room Air Physical Exam GENERAL: Awake, alert, well-appearing, in no distress HENT: Normocephalic, atraumatic. Oropharynx unremarkable. EYES: Normal conjunctiva. Sclera non-icteric. EOMI. PERRL. NECK: Supple. No nuchal rigidity. RESPIRATORY: Clear to auscultation. CARDIAC: Regular rate, normal rhythm. Extremities warm and well perfused. Pulses equal. ABDOMEN: Soft, non-distended. No tenderness to palpation. No rebound or guarding. No masses. RECTAL: Deferred. MUSCULOSKELETAL: Chest examination reveals no tenderness. The back is symmetrical on inspection without obvious abnormality. There is no CVA tenderness to palpation. No joint edema. LOWER EXTREMITIES: Calves are equal size bilaterally and non-tender. No edema. No discoloration. NEURO: Normal sensorium. No sensory or motor deficits noted. SKIN: No rash or jaundice noted. Medical Decision & Procedures Laboratory Results 02/15/17 17:17 Red Blood Count 4.86, Mean Corpuscular Volume 81.1, Mean Corpuscular Hemoglobin 27.0, Mean Corpuscular Hemoglobin Concent 33.2, Mean Platelet Volume 10.5, Neutrophils (%) (Auto) 68.0, Lymphocytes (%) (Auto) 22.7, Monocytes (%) (Auto) 7.6, Eosinophils (%) (Auto) 1.2, Basophils (%) (Auto) 0.3, Neutrophils # (Auto) 8.17, Lymphocytes # (Auto) 2.73, Monocytes # (Auto) 0.92, Eosinophils # (Auto) 0.15, Basophils # (Auto) 0.04 02/15/17 17:17 Test 02/15/17 17:17 White Blood Count 12.04 K/uL (4.8-10.8) Red Blood Count 4.86 M/uL (4.2-5.4) Hemoglobin 13.1 g/dL (12.0-16.0) Hematocrit 39.4 % (37-47) Mean Corpuscular Volume 81.1 fL (80-100) Mean Corpuscular Hemoglobin 27.0 pg (25-34) Mean Corpuscular Hemoglobin Concent 33.2 g/dl (32-36) Platelet Count 228 K/uL (130-400) Mean Platelet Volume 10.5 fL (7.4-10.4) Neutrophils (%) (Auto) 68.0 % Lymphocytes (%) (Auto) 22.7 % Monocytes (%) (Auto) 7.6 % Eosinophils (%) (Auto) 1.2 % Basophils (%) (Auto) 0.3 % Neutrophils # (Auto) 8.17 K/uL (1.4-6.5) Lymphocytes # (Auto) 2.73 K/uL (1.2-3.4) Monocytes # (Auto) 0.92 K/uL (0.11-0.59) Eosinophils # (Auto) 0.15 K/uL (0-0.5) Basophils # (Auto) 0.04 K/uL (0-0.2) RDW Standard Deviation 39.4 fL (36.4-46.3) RDW Coefficient of Variation 13.3 % (11.5-14.5) Immature Granulocyte % (Auto) 0.2 % Immature Granulocyte # (Auto) 0.03 K/uL (0.00-0.02) Anion Gap 9.0 mmol/L (3-11) Est Creatinine Clear Calc Drug Dose 78.2 ml/min Estimated GFR () 80.5 Estimated GFR (Non- 69.4 BUN/Creatinine Ratio 12.0 (10-20) Calcium Level 8.4 mg/dl (8.5-10.1) Troponin I < 0.015 ng/ml (0-0.045) Medications Administered Medications (Trade) Dose Ordered Sig/Saúl Route Start Time Stop Time Status Last Admin Dose Admin Ketorolac Tromethamine (Toradol Inj) 30 mg NOW STAT IV 02/15/17 16:16 02/15/17 16:17 DC 02/15/17 16:43 30 MG Morphine Sulfate (MoRPHine SULFATE INJ) 4 mg NOW STAT IV 02/15/17 16:16 6/1/17 16:18 DC 02/15/17 16:44 4 MG Ondansetron HCl (Zofran Inj) 4 mg NOW STAT IV 02/15/17 16:16 02/15/17 16:18 DC 02/15/17 16:43 4 MG Medical Decision Patient is a 51 year old female that presents with a 1 day history of chest pain and headache Etiologies such as cardiac ischemia, aortic dissection, pulmonary embolism, pneumonia, pneumothorax, musculoskeletal, infections, gastrointestinal, as well as others were entertained. - EKG - CXR - Troponin - CBC - BMP Morphine 4mg IV Zofran 8mg IV Patient states that chest pain is relieved but still has some residual headache Impression Primary Impression: Chest pain Additional Impression: Headache Departure Information Dispostion Home / Self-Care Condition GOOD Referrals Gerardo Eli M.D. (PCP) Patient Instructions My [facility] Additional Instructions Please follow up with you Family Doctor at your schedule appointment on 02/20 HEADACHE INSTRUCTIONS: DO NOT drive, drink alcohol, operate machinery, or perform dangerous activities today. You were given medications in the ER that can affect your ability to safely function or operate a vehicle. Rest today in a quiet, peaceful, dark environment and get a full 8-10 hrs of sleep tonight. Avoid loud noises, smoke/smoking, alcohol, bright lights, stress, or physical exertion today to minimize the chance the headache may return. Continue current medications. Ibuprofen(Motrin, Advil) may be used for fever or pain. Use 600mg every six hours as needed. Take with food. Avoid using more than 2400mg in a 24 hour period. Do not use 2400mg per day for more than three consecutive days without physician direction. Prolonged inappropriate use can lead to stomach upset or ulcers. (AND/OR) Return to the ER for passing out, worsening headache, vision problems, neck stiffness/pain, fevers, vomiting, worsening of your condition, or as needed. CHEST PAIN INSTRUCTIONS: Avoid strenuous activities and anything that worsens your pain. Resume normal activities once your symptoms resolve. Return to the ER immediately for worsening or persistent chest pain, abdominal pain, vomiting, fevers, chest pains, difficulty breathing, worsening of your condition, or as needed. Problem Qualifiers Primary Impression: Chest pain Chest pain type: unspecified Qualified Codes: R07.9 - Chest pain, unspecified Additional Impression: Headache Headache type: unspecified Headache chronicity pattern: acute headache Intractability: not intractable Qualified Codes: R51 - Headache
[2017-02-15 16:49] VITALS: O2SAT 98
[2017-02-15 17:37] LABS: BASO % 0.3 %; BASO ABS # 0.04 K/uL (0-0.2); COMPLETE YES; EOS % 1.2 %; HEMATOCRIT 39.4 % (37-47); IG% 0.2 %; LYMPH % 22.7 %; LYMPH ABS # 2.73 K/uL (1.2-3.4); MEAN CELL VOLUME 81.1 fL (80-100); MEAN CORPUSCULAR HGB CONC 33.2 g/dl (32-36); MEAN PLATELET VOLUME 10.5 fL (7.4-10.4); MONO % 7.6 %; PLATELET COUNT 228 K/uL (130-400); RED BLOOD COUNT 4.86 M/uL (4.2-5.4); WHITE BLOOD COUNT 12.04 K/uL (4.8-10.8)
[2017-02-15 17:50] LABS: BLOOD UREA NITROGEN 12 mg/dl (7-18); CALCIUM 8.4 mg/dl (8.5-10.1); CARBON DIOXIDE 23 mmol/L (21-32); CHLORIDE 110 mmol/L (98-107); CREATININE 0.96 mg/dl (0.60-1.20); GLUCOSE 86 mg/dl (70-99); POTASSIUM 3.7 mmol/L (3.5-5.1); SODIUM 142 mmol/L (136-145)
--- NOTE | 2017-02-15 18:17 | EMERGENCY ROOM VISIT NOTE ---
History Report prepared by Pita: Laura Haile Under the Supervision of: Dr. Luis Angel Toussaint D.O. First contact with patient: 15:45 Chief Complaint: CHEST PAIN Stated Complaint: CHEST PAIN - BP History of Present Illness The patient is a 51 year old female who presents to the Emergency Room with complaints of constant chest pain and chest tightness beginning this morning. The patient states that she was seen inpatient here for headache and chest pain and was recently discharged from the hospital on 02/09. She reports that the doctors were not sure what was wrong with her. She reports that she felt fine for 2 days and she developed a headache in the front of her head yesterday. She notes that it worsened today and this morning she was sitting on the couch when she her chest started hurting again. The patient notes that she has a history of migraines and often gets headaches when her blood pressure is high. She complains of a headache, arm numbness, and shortness of breath. She denies any radiation of the pain, changes of vision, abdominal pain, fever. Source of History: patient Onset: this morning Position: chest Quality: other (tightness) Associated Symptoms: + headache, + SOB, No fevers, No abdominal pain Note: She complains of arm numbness. She denies any radiation of the pain and changes of vision. Review of Systems See HPI for pertinent positives & negatives. A total of 10 systems reviewed and were otherwise negative. Past Medical & Surgical Medical Problems: (1) Anxiety (2) Chest pain (3) Depression (4) failed ablation (5) GERD (gastroesophageal reflux disease) (6) Hyperlipidemia (7) Hypertension (8) Menorrhagia Family History No pertinent family history stated. Social History Smoking Status: Never Smoker Drug Use: none Marital Status: Occupation Status: employed Current/Historical Medications Scheduled Bupropion Hcl (Wellbutrin Xl), 300 MG PO QAM Cholecalciferol (Vitamin D3), 1 TAB PO QAM Estradiol (Estradiol), 2 MG PO DAILY Fluoxetine (Prozac), 40 MG PO QAM Leflunomide (Arava), 20 MG PO DAILY Lorazepam (Ativan), 1 MG PO PRN Losartan Potassium (Losartan Potassium), 100 MG PO QAM Ranitidine (Zantac), 150 MG PO BID Simvastatin (Simvastatin), 40 MG PO QPM Scheduled PRN Ibuprofen (Ibuprofen), 600 MG PO Q6H PRN for Pain,EWING,cramping,or fever Allergies Coded Allergies: NO KNOWN DRUG ALLERGIES (Verified Allergy, Unknown, ., 02/09/17) [place] (Verified Allergy, Unknown, HIVES, 02/09/17) Physical Exam Vital Signs Date Time Temp Pulse Resp B/P (MAP) Pulse Ox O2 Delivery O2 Flow Rate FiO2 02/15/17 18:26 84 24 171/97 96 Room Air 02/15/17 16:58 80 02/15/17 16:52 80 16 171/82 98 02/15/17 16:50 98 Room Air 02/15/17 16:49 98 Room Air 02/15/17 15:34 36.8 105 18 195/112 99 Room Air Physical Exam CONSTITUTIONAL/VITAL SIGNS: Reviewed / noted above. GENERAL: Non-toxic in appearance. INTEGUMENTARY: Warm, dry, and [place]. HEAD: Normocephalic. EYES: without scleral icterus or trauma. ENT/OROPHARYNX: clear and moist. LYMPHADENOPATHY/NECK: Is supple without lymphadenopathy or meningismus. RESPIRATORY: Lungs clear and equal. CARDIOVASCULAR: Regular rate and rhythm. GI/ABDOMEN: Soft and nontender. No organomegaly or pulsatile mass. No rebound or guarding. Normal bowel sounds. EXTREMITIES: Warm and well perfused. BACK: No CVA tenderness. NEUROLOGICAL: Intact without focal deficits. PSYCHIATRIC: normal affect. MUSCULOSKELETAL: Normally developed with good muscle tone. Medical Decision & Procedures ER Provider Diagnostic Interpretation: X ray results and stated below per my interpretation and radiology interpretation. CHEST ONE VIEW PORTABLE FINDINGS: The cardiac and mediastinal contours are normal. There is no evidence of focal pulmonary consolidation. There is no evidence of failure. No pleural effusions are visualized.[ IMPRESSION: No active disease in the chest. Electronically signed by: Fermin Quinones M.D. 02/15/2017 4:24 PM Dictated Date/Time: 02/15/2017 4:24 PM Laboratory Results 02/15/17 17:17 Red Blood Count 4.86, Mean Corpuscular Volume 81.1, Mean Corpuscular Hemoglobin 27.0, Mean Corpuscular Hemoglobin Concent 33.2, Mean Platelet Volume 10.5, Neutrophils (%) (Auto) 68.0, Lymphocytes (%) (Auto) 22.7, Monocytes (%) (Auto) 7.6, Eosinophils (%) (Auto) 1.2, Basophils (%) (Auto) 0.3, Neutrophils # (Auto) 8.17, Lymphocytes # (Auto) 2.73, Monocytes # (Auto) 0.92, Eosinophils # (Auto) 0.15, Basophils # (Auto) 0.04 02/15/17 17:17 Test 02/15/17 17:17 White Blood Count 12.04 K/uL (4.8-10.8) Red Blood Count 4.86 M/uL (4.2-5.4) Hemoglobin 13.1 g/dL (12.0-16.0) Hematocrit 39.4 % (37-47) Mean Corpuscular Volume 81.1 fL (80-100) Mean Corpuscular Hemoglobin 27.0 pg (25-34) Mean Corpuscular Hemoglobin Concent 33.2 g/dl (32-36) Platelet Count 228 K/uL (130-400) Mean Platelet Volume 10.5 fL (7.4-10.4) Neutrophils (%) (Auto) 68.0 % Lymphocytes (%) (Auto) 22.7 % Monocytes (%) (Auto) 7.6 % Eosinophils (%) (Auto) 1.2 % Basophils (%) (Auto) 0.3 % Neutrophils # (Auto) 8.17 K/uL (1.4-6.5) Lymphocytes # (Auto) 2.73 K/uL (1.2-3.4) Monocytes # (Auto) 0.92 K/uL (0.11-0.59) Eosinophils # (Auto) 0.15 K/uL (0-0.5) Basophils # (Auto) 0.04 K/uL (0-0.2) RDW Standard Deviation 39.4 fL (36.4-46.3) RDW Coefficient of Variation 13.3 % (11.5-14.5) Immature Granulocyte % (Auto) 0.2 % Immature Granulocyte # (Auto) 0.03 K/uL (0.00-0.02) Anion Gap 9.0 mmol/L (3-11) Est Creatinine Clear Calc Drug Dose 78.2 ml/min Estimated GFR () 80.5 Estimated GFR (Non- 69.4 BUN/Creatinine Ratio 12.0 (10-20) Calcium Level 8.4 mg/dl (8.5-10.1) Troponin I < 0.015 ng/ml (0-0.045) Laboratory results as stated above per my review. Medications Administered Medications (Trade) Dose Ordered Sig/Saúl Route Start Time Stop Time Status Last Admin Dose Admin Ketorolac Tromethamine (Toradol Inj) 30 mg NOW STAT IV 02/15/17 16:16 02/15/17 16:17 DC 02/15/17 16:43 30 MG Morphine Sulfate (MoRPHine SULFATE INJ) 4 mg NOW STAT IV 02/15/17 16:16 02/15/17 16:18 DC 02/15/17 16:44 4 MG Ondansetron HCl (Zofran Inj) 4 mg NOW STAT IV 02/15/17 16:16 02/15/17 16:18 DC 02/15/17 16:43 4 MG ECG Indication: chest pain Rate (beats per minute): 91 Rhythm: normal sinus Findings: no ectopy, other (no acute injury) ED Course 1545: Previous medical records were reviewed. The patient was evaluated in room C5. A complete history and physical examination was performed. 1616: Zofran Inj 4mg IV, Morphine Sulfate 4mg IV, Toradol Inj 30mg IV. Medical Decision Differential diagnosis: Etiologies such as cardiac ischemia, aortic dissection, pulmonary embolism, pneumonia, pneumothorax, musculoskeletal, infections, pericarditis, myocarditis , esophageal rupture, gastrointestinal, as well as others were entertained. Medication Reconciliation: I attest that I have personally reviewed the patient' s current medication list. Blood pressure Screening: Patient was found to have an elevated blood pressure and was referred to their primary doctor for recheck and further treatment. This is a 51-year-old female who presents to the ED with a chief complaint of chest discomfort. The patient was seen and admitted to the hospital a few days ago for the same. She had a normal stress Echo at that time. D-dimer at that time was also negative. Her chest pain was felt to be noncardiac. The patient' s losartan was doubled. She presents today with similar symptoms. Further details listed above. Initial blood pressure was 195/112. She states that she has had a headache for the past 24 hours or so. When I evaluated the patient in the room, her blood pressure was 141/85. Her exam was normal. Chest x-ray did not show acute disease. EKG shows a normal sinus rhythm. Troponin was negative. CBC and PRP were unremarkable. The patient was treated with IV Toradol and IV morphine. She was given IV Zofran. The patient's blood pressure was somewhat elevated on reexam but is unlikely to be the cause of her symptoms. I suspect her headache was causing her elevated blood pressure. She does have some baseline hypertension as well. She does have improvement of her headache at this time. She is felt to be stable for discharge with outpatient follow-up and blood pressure recheck by her PCP. Impression Primary Impression: Non-cardiac chest pain Additional Impressions: Headache Hypertension Scribe Attestation The scribe's documentation has been prepared under my direction and personally reviewed by me in its entirety. I confirm that the note above accurately reflects all work, treatment, procedures, and medical decision making performed by me. Departure Information Dispostion Home / Self-Care Referrals Gerardo Eli M.D. (PCP) Forms HOME CARE DOCUMENTATION FORM, IMPORTANT VISIT INFORMATION Patient Instructions My [facility] Additional Instructions Please follow up with you Family Doctor at your schedule appointment on 02/20 HEADACHE INSTRUCTIONS: DO NOT drive, drink alcohol, operate machinery, or perform dangerous activities today. You were given medications in the ER that can affect your ability to safely function or operate a vehicle. Rest today in a quiet, peaceful, dark environment and get a full 8-10 hrs of sleep tonight. Avoid loud noises, smoke/smoking, alcohol, bright lights, stress, or physical exertion today to minimize the chance the headache may return. Continue current medications. Ibuprofen(Motrin, Advil) may be used for fever or pain. Use 600mg every six hours as needed. Take with food. Avoid using more than 2400mg in a 24 hour period. Do not use 2400mg per day for more than three consecutive days without physician direction. Prolonged inappropriate use can lead to stomach upset or ulcers. (AND/OR) Return to the ER for passing out, worsening headache, vision problems, neck stiffness/pain, fevers, vomiting, worsening of your condition, or as needed. CHEST PAIN INSTRUCTIONS: Avoid strenuous activities and anything that worsens your pain. Resume normal activities once your symptoms resolve. Return to the ER immediately for worsening or persistent chest pain, abdominal pain, vomiting, fevers, chest pains, difficulty breathing, worsening of your condition, or as needed. Problem Qualifiers Additional Impressions: Headache Headache type: unspecified Headache chronicity pattern: acute headache Intractability: not intractable Qualified Codes: R51 - Headache
[2017-02-15 18:26] VITALS: BP 171/97; PULSE 84; O2SAT 96
== END 2017-02-15 18:35 | disposition home or self-care (01) ==
LOC: C.EDB 15:31 → C.EDC 18:35
DX: R07.9 Chest pain, unspecified (principal); R51 Headache; I10 Essential (primary) hypertension; E78.5 Hyperlipidemia, unspecified; F32.9 Major depressive disorder, single episode, unspecified; F41.9 Anxiety disorder, unspecified; K21.9 Gastro-esophageal reflux disease without esophagitis; Z79.899 Other long term (current) drug therapy

== ENCOUNTER → 2017-02-16 | Outpatient (CLI) | payer BC ==
--- NOTE | 2017-02-16 11:21 | DIAGNOSTIC IMAGING REPORT ---
DUPLEX RENAL ARTERY ULTRASOUND CLINICAL HISTORY: Hypertension. COMPARISON STUDY: None. FINDINGS: The right kidney measures 9.7 cm and the left kidney measures 9.8 cm. No hydronephrosis. Normal corticomedullary differentiation and cortical thickness. Bilateral renal veins are patent. Peak systolic velocity within the right renal artery is 131 cm/s distally. Resistive indices of the right renal arcuate arteries are less than 0.6. Peak systolic velocity within the left renal artery is 235 cm/s within the midportion. Resistive indices of the left renal arcuate arteries are less than 0.7. IMPRESSION: 1. Hemodynamically significant stenosis within the mid left renal artery. 2. No significant stenosis within the right renal artery. Electronically signed by: Estevan Jimenez M.D. 02/16/2017 11:20 AM Dictated Date/Time: 02/16/2017 11:17 AM
== END | disposition home or self-care (01) ==
LOC: C.ULTR 10:12
PROVIDERS: ATTEND Physician Assistant Medical
DX: I10 Essential (primary) hypertension (principal); I70.1 Atherosclerosis of renal artery

== ENCOUNTER → 2017-02-28 | Outpatient (CLI) | payer BC ==
[2017-02-28 12:49] LABS: BLOOD UREA NITROGEN 17 mg/dl (7-18); CALCIUM 8.7 mg/dl (8.5-10.1); CARBON DIOXIDE 28 mmol/L (21-32); CHLORIDE 103 mmol/L (98-107); GLUCOSE 112 mg/dl (70-99); POTASSIUM 3.3 mmol/L (3.5-5.1); SODIUM 139 mmol/L (136-145)
== END | disposition home or self-care (01) ==
LOC: C.LABBFT 07:34
PROVIDERS: ATTEND Physician Assistant Medical
DX: M79.1 Myalgia (principal); I70.1 Atherosclerosis of renal artery

== ENCOUNTER → 2017-03-06 | Outpatient (CLI) | payer BC ==
[2017-03-06 12:40] LABS: BLOOD UREA NITROGEN 14 mg/dl (7-18); BUN/CREATININE RATIO 12.8 (10-20); CALCIUM 8.9 mg/dl (8.5-10.1); CARBON DIOXIDE 25 mmol/L (21-32); CHLORIDE 109 mmol/L (98-107); GLUCOSE 92 mg/dl (70-99); POTASSIUM 4.2 mmol/L (3.5-5.1); SODIUM 142 mmol/L (136-145)
== END | disposition home or self-care (01) ==
LOC: C.LABBFT 07:53
PROVIDERS: ATTEND Physician Assistant Medical
DX: E87.6 Hypokalemia (principal); M79.1 Myalgia

== ENCOUNTER → 2017-03-07 | Outpatient (CLI) | payer BC ==
[~2017-03-07] MED LIST changes: +OPTIRAY 320 IV PRN
--- NOTE | 2017-03-07 09:44 | DIAGNOSTIC IMAGING REPORT ---
ABDOMINAL CTA WITH INTRAVENOUS CONTRAST HISTORY: Left RENAL ARTERY STENOSIS, HEADACHE, HYPERTENSION TECHNIQUE: Multiaxial CT images of the abdomen were performed following the use of intravenous contrast to evaluate the renal arteries. COMPARISON STUDY: Renal artery duplex study 02/16/2017. FINDINGS: There are few punctate calcification along was within the left lower lobe. Tiny fat-containing supraumbilical hernia. The liver, gallbladder, pancreas, spleen, adrenal glands, and kidneys are unremarkable. No hydronephrosis. No retroperitoneal lymphadenopathy. The visualized loops of bowel show no wall thickening or obstruction. Abdominal aorta is normal in course and caliber. The celiac artery, superior mesenteric artery, and inferior mesenteric artery are widely patent. There are single bilateral renal arteries which are widely patent. IMPRESSION: No evidence for renal artery stenosis. Electronically signed by: Estevan Jimenez M.D. 03/07/2017 9:43 AM Dictated Date/Time: 03/07/2017 9:37 AM
== END | disposition home or self-care (01) ==
LOC: C.CTS 09:03
PROVIDERS: ATTEND Physician Assistant Medical
DX: I10 Essential (primary) hypertension (principal); I70.1 Atherosclerosis of renal artery; R51 Headache

== ENCOUNTER → 2017-12-21 | Outpatient (CLI) | payer BC ==
[~2017-12-21] MED LIST changes: -OPTIRAY 320 IV PRN; +RANI150T85 PO; -ZNTT/150 PO
--- NOTE | 2017-12-21 15:39 | MAMMOGRAPHY REPORT ---
BILATERAL DIGITAL SCREENING MAMMOGRAM TOMOSYNTHESIS WITH CAD: 12/21/2017 CLINICAL HISTORY: Routine screening. Patient has no complaints. TECHNIQUE: Breast tomosynthesis in addition to standard 2D mammography was performed. Current study was also evaluated with a Computer Aided Detection (CAD) system. COMPARISON: Comparison is made to exams dated: 06/26/2013 ultrasound, 06/26/2013 mammogram, and 06/13 mammogram - [facility]. BREAST COMPOSITION: The tissue of both breasts is heterogeneously dense, which may obscure small mas ses. FINDINGS: No suspicious masses, calcifications, or areas of architectural distortion are noted in ei ther breast. There has been no significant interval change compared to prior exams. Scattered bilate ral benign-appearing calcifications are again noted. IMPRESSION: ACR BI-RADS CATEGORY 2: BENIGN There is no mammographic evidence of malignancy. A 1 year screening mammogram is recommended. The pa tient will receive written notification of the results. Approximately 10% of breast cancers are not detected with mammography. A negative mammographic report should not delay biopsy if a clinically suggestive mass is present. Nina Fernandez M.D. /:12/21/2017 13:48:18 Analytical Lead: Gauri Roach, [facility] letter sent: Normal 1/2 BI-RADS Code: ACR BI-RADS Category 2: Benign
== END | disposition home or self-care (01) ==
LOC: C.MAMM 10:17
PROVIDERS: ATTEND Internal Medicine
DX: Z12.31 Encounter for screening mammogram for malignant neoplasm of breast (principal)

== ENCOUNTER → 2018-04-12 | Outpatient (CLI) | payer BC ==
[2018-04-12 12:33] LABS: BLOOD UREA NITROGEN 16 mg/dl (7-18); CARBON DIOXIDE 24 mmol/L (21-32); CREATININE 1.25 mg/dl (0.60-1.20); GLUCOSE 105 mg/dl (70-99); SODIUM 139 mmol/L (136-145)
== END | disposition home or self-care (01) ==
LOC: C.LABBFT 07:38
PROVIDERS: ATTEND Internal Medicine
DX: I70.1 Atherosclerosis of renal artery (principal)